=== PATIENT | female | born 1960 | race Caucasian/White ===

== ENCOUNTER 2017-06-10 18:01 | Inpatient (IN) ==
--- NOTE | 2017-06-10 19:02 | Emergency Department Note ---
Disposition Clinical Impression: Headache Qualifiers: Headache type: unspecified Headache chronicity pattern: unspecified pattern Intractability: not intractable Qualified Code(s): R51 - Headache Chest pain Qualifiers: Chest pain type: unspecified Qualified Code(s): R07.9 - Chest pain, unspecified Disposition: Admitted As Inpatient Condition: Fair Referrals: NO,PCP [Non-Partnered Physician] - Forms: ED Satisfaction Letter General Adult HPI - General Chief complaint: ED Headache Stated complaint: Multiple Complaints Time Seen by Provider: 06/10/17 18:08 Source: patient Mode of arrival: ambulatory Limitations: no limitations Nursing Notes Reviewed: Yes Vital Signs Reviewed: Yes - History of Present Illness HPI Narrative: sruthi is a 56-year-old female with a medical history of an incidental finding of a brain aneurysm on MRI, visits for headache in the past, presenting today with multiple complaints. When asking the patient what brings her into the emergency department today, she stated that initially her complaint is headache. She is unsure if it started yesterday or last Thursday, she proceeded to tell me her EMG results of both of her forearms, then she started to complain of a tiny aneurysm on her third finger of her left hand at the base. I asked the patient if she has one concern we can focus on initially, what is it? She stated she has a headache and the headache is posterior. She then began to talk about her aneurysm in her finger. I asked the patient to focus on one complaint at a time, she chose headache and then she told me that her headache is now resolved and she is now having more of a pressure behind her eyes. When asked about the pressure behind eyes the patient told me that pain resolved and now she is feeling nauseous. I proceeded by asking the patient what her expectations of the emergency department are today. States that she wants to know what is causing her "vasculitis and aneurysms." She says , "I just want to know what is wrong with me?" Pain Scale: 7 - Related Data Allergies Allergy/AdvReac Type Severity Reaction Status Date / Time sulfamethoxazole Allergy Anaphylaxis Verified 09/23/16 19:09 [From Bactrim] trimethoprim [From Bactrim] Allergy Anaphylaxis Verified 09/23/16 19:09 codeine AdvReac Itching Verified 09/23/16 19:09 All systems ED: reviewed and negative except as stated. Constitutional: Reports: as per HPI. Denies: fever, chills Eyes: Reports: as per HPI. Denies: vision change ENT ED: Reports: as per HPI. Denies: hearing loss Cardiovascular: Reports: as per HPI, syncope. Denies: chest pain, palpitations , dyspnea on exertion, orthopnea Respiratory: Reports: as per HPI. Denies: cough, dyspnea, wheezes Gastrointestinal: Reports: as per HPI. Denies: abdominal pain, nausea, vomiting Genitourinary: Reports: as per HPI. Denies: dysuria Musculoskeletal: Reports: as per HPI. Denies: back pain, neck pain Integumentary: Reports: as per HPI. Denies: rash Neurological: Reports: as per HPI, headache. Denies: weakness, numbness, paresthesias, abnormal gait Psychiatric: Reports: as per HPI Past Medical History - Past Medical History Medical history: Reports: GERD, hypertension, other Surgical history: Reports: cholecystectomy, hysterectomy Psychiatric history: Reports: anxiety [employer] history: Reports: polycystic ovary syndrome - Social History Smoking Status: Never smoker Smokeless Tobacco Status: No Alcohol use: Reports: none Drug use: Reports: none Physical Exam - General Limitations: no limitations General appearance: alert, in no apparent distress - Head Head exam: atraumatic, normocephalic, normal inspection - Eye Eye exam: Present: normal appearance, PERRL, EOMI - ENT ENT exam: normal exam, normal oropharynx, mucous membranes moist, TM's normal bilaterally - Neck Neck exam: Present: normal inspection, full ROM, trachea midline. Absent: tenderness - Chest Chest inspection: Present: normal inspection, symmetric chest wall rise, tenderness - Respiratory Respiratory exam: Present: normal lung sounds bilaterally. Absent: respiratory distress, wheezes, stridor - Cardiovascular Cardiovascular exam: Present: regular rate, normal rhythm, normal heart sounds - Abdominal Exam Abdominal exam: Present: soft, Non-Tender, normal bowel sounds. Absent: tenderness - Extremities Exam Extremities exam: Present: normal inspection - Back Exam Back exam: Present: normal inspection - Neurological Exam Neurological exam: Present: alert, oriented X3, CN II-XII intact, normal gait - Expanded Neurological Exam Patient oriented to: Present: person, place, time Speech: Present: fluid speech Cranial nerves: EOM function (II, III, IV, ): Normal, facial sensation (V): Normal, facial palsy (VII): Normal, gag reflex (IX): Normal, spinal accessory function (XI): Normal, tongue deviation (XII): Normal Cerebellar function: finger to nose: Normal, heel to randall: Normal Cerebellar function: normal gait Motor strength - LUE: 5/5 Motor strength - RUE: 5/5 Motor strength - LLE: 5/5 Motor strength - RLE: 5/5 Upper motor neuron exam: pronator drift: Absent bilaterally Sensory exam upper extremity: light touch: Normal Sensory exam lower extremity: light touch: Normal DTR: bicep (L): 2+, bicep (R): 2+, patellar (L): 2+, patellar (R): 2+ Coma Scale Eye Opening: Spontaneous Coma Scale Motor Response: Obeys Commands Coma Scale Verbal Response: Oriented Coma Scale Total: 15 - Psychiatric Psychiatric exam: Present: normal affect, normal mood - Skin Skin exam: Present: warm, dry Course Course Narrative: Initially presented to the ED with multiple complaints that are chronic. Initially, the patient began talking about her headache, throughout our discussion the location was inconsistent by the end of our conversation the patient stated the headache is not a problem right now. I had a very long discussion with the patient about her expectations of the emergency department what she would like for us to help her with today I discussed with the patient her visits to [facility] and the [facility] concerning her incidental finding of an aneurysm of her MRI she states she has gone to both places and now she is currently looking for interventional neurologists. I discussed with the patient our options as far as diagnostic modalities in the ER. I discussed with the patient that since her physical exam appears normal her neurological exam is completely intact and I do not find any abnormalities at this time, I do not believe a CT scan of her head is warranted and may just expose her to unnecessary radiation. I discussed this with the patient and she agreed with me. I offer the patient fluid and a migraine cocktail because she had been complaining of on and off headaches for the past few days, she politely declined. I recommended the patient follow up with her specialist that she has been currently seeing for these problems. Patient states that she understands and she does not believe that she will get when she is looking for in the emergency department and did prefer to just go home. The patient was also concerned of her blood pressure. She states that her blood pressure is high when she is up and walking around that concerns her because she knows that she has aneurysms. I offered to watch her blood pressure while she was here and I had her sit down on the bed to check her blood pressure because she was sitting in the visitors chair as she sat down her blood pressure she said that since going to be normal. I asked her if she wanted her blood pressure to be normal and she said yes but she knows that a tire when she was up and around and performing activities. With her that if her blood pressure is normal while she is resting comfortably in a chair is most likely not concerning. The patient understands. - Reevaluation(s) Reevaluation #1: The patient was seen by Dr. Iqbal and after discussion the patient stated she would like to leave AMA. Shortly afterward, she began to c/o new onset chest pain. I entered the room with Dr. Iqbal and her stated, "no more questions, if you have questions you can ask me, she is done!" We discussed with her that we need more information about the chest pain she is having now and will have to evaluate her if she is to be seen for her chest pain. We then proceeded to set the patient up for her EKG and her interrupted and stated, "she is having chest pain." I discussed with him the utility of the EKG in chest pain and that we are initiating a chest pain workup. THe patient also interrupted her history and stated that she has "a-fib," and the patient proceeded to tell me this it is not true. HPI Chest Pain The patient states she is having a substernal chest pain onset 2 minutes ago with radiation to back. Denies any N/V, diaphoresis, or SOB. Non-exertional. The patient states she has a "bigeminy and trigeminy" and takes metoprolol for it at home. Has not had aspirin today. Physical Exam: Pt appears to be in mild distress she is standing up leaning against the bed. I asked her to sit in bed to prevent falls and she agreed. The patient lungs remain CTAB, heart exam was normal rate and rhythm, no murmur, rubs or gallops. Abdominal exam was nontender, normal bowel sounds. The patient had 2+ radial and dorsalis pedal pulses bilaterally. I initiated a cardiac workup of the patient. at 19:[address] Iqbal and apologized for her behavior in the ED. Time: 19:42 Reevaluation #2: I spoke with DR. Martinez, he agrees to accept the patient for ACS r/o. Patient HR is 96, vitals are stable. Time: 20:50 Vital Signs Temperature 98.1 F 06/10/17 18:02 Pulse Rate 113 06/10/17 18:02 Respiratory Rate 16 06/10/17 18:02 Blood Pressure 167/96 06/10/17 18:02 O2 Sat by Pulse Oximetry 97 06/10/17 18:02 Temperature 98.1 F 06/10/17 18:02 Pulse Rate 113 06/10/17 18:02 Respiratory Rate 16 06/10/17 18:02 Blood Pressure 167/96 06/10/17 18:02 O2 Sat by Pulse Oximetry 98 06/10/17 19:45 Oxygen Delivery Oxygen Delivery Room Air Medical Decision Making - MDM Narrative Medical decision making narrative: See Course - Medical Records Medical records reviewed: Yes I reviewed the patient's medical records. - Lab Data Lab results reviewed: Yes I reviewed the patient's lab results. Result diagrams: 06/10/17 19:38 06/10/17 19:38 Lab Results 06/10/17 06/10/17 06/10/17 Range/Units 19:38 19:38 19:38 WBC 8.3 (4.3-11.1) K/mcL RBC 4.54 (3.82-4.97) M/mcL Hgb 13.4 (11.5-15.4) g/dL Hct 40.2 (35.3-44.9) % MCV 88.5 (83.0-100.0) fL MCH 29.5 (28.0-33.3) pg MCHC 33.3 (31.6-35.5) g/dL RDW 12.5 (11.5-14.5) % Plt Count 260 (140-400) K/mcL MPV 9.1 L (9.4-12.4) fL Immature Gran % 0.2 (0-4) % Seg Neutrophils % 44.0 % Lymphocytes % 42.6 % Monocytes % 9.2 % Eosinophils % 3.5 % Basophils % 0.5 % Neutrophils # 3.7 (1.6-8.9) K/mcL Lymphocytes # 3.6 (0.6-4.6) K/mcL Monocytes # 0.8 (0.0-1.3) K/mcL Eosinophils # 0.3 (0.0-0.6) K/mcL Basophils # 0.0 (0.0-0.2) K/mcL Immature Plt Fraction 1.6 (1.1-6.1) % PT 11.3 (9.4-12.1) Seconds INR 1.0 APTT 29.9 (26.0-36.0) Seconds Sodium 136 (136-145) mEq/L Potassium 4.1 (3.5-4.5) mEq/L Chloride 103 (98-109) mEq/L Carbon Dioxide 25 (19-29) mEq/L BUN 14 (7-20) mg/dL Creatinine 1.11 (0.57-1.11) mg/dL Est GFR ( Amer) > 60 (> 60) Est GFR (Non-Af Amer) 50 L (> 60) BUN/Creatinine Ratio 13 (6-26) Glucose 105 H (70-99) mg/dL Calculated Osmolality 283 (280-300) Calcium 9.3 (8.6-10.8) mg/dL Troponin I (0-0.03) ng/mL 06/10/17 Range/Units 19:38 WBC (4.3-11.1) K/mcL RBC (3.82-4.97) M/mcL Hgb (11.5-15.4) g/dL Hct (35.3-44.9) % MCV (83.0-100.0) fL MCH (28.0-33.3) pg MCHC (31.6-35.5) g/dL RDW (11.5-14.5) % Plt Count (140-400) K/mcL MPV (9.4-12.4) fL Immature Gran % (0-4) % Seg Neutrophils % % Lymphocytes % % Monocytes % % Eosinophils % % Basophils % % Neutrophils # (1.6-8.9) K/mcL Lymphocytes # (0.6-4.6) K/mcL Monocytes # (0.0-1.3) K/mcL Eosinophils # (0.0-0.6) K/mcL Basophils # (0.0-0.2) K/mcL Immature Plt Fraction (1.1-6.1) % PT (9.4-12.1) Seconds INR APTT (26.0-36.0) Seconds Sodium (136-145) mEq/L Potassium (3.5-4.5) mEq/L Chloride (98-109) mEq/L Carbon Dioxide (19-29) mEq/L BUN (7-20) mg/dL Creatinine (0.57-1.11) mg/dL Est GFR ( Amer) (> 60) Est GFR (Non-Af Amer) (> 60) BUN/Creatinine Ratio (6-26) Glucose (70-99) mg/dL Calculated Osmolality (280-300) Calcium (8.6-10.8) mg/dL Troponin I 0.01 (0-0.03) ng/mL - Radiology Data Radiology results reviewed: Yes I reviewed the patient's radiology results. S.B.A.R. - S.B.A.R. Situation: Demographics Background: Presenting Complaint, Relevant PMH, Meds, & Allergies Assessment: Vital Signs Recommendation: Recommendation based on pending studies, treatments, or consults Attestation Statement - Attestation Attestation: I personally interviewed and examined this patient and my medical decision- making was reviewed with the ED Resident Physician, Dr. Adams I agree with the documented findings, disposition and treatment plan as described except to the extent set forth below. Patient is a 56-year-old white female who presents to emergency department today initially through triage with complaints of a headache. Patient has been seen by outpatient neurology in the past as well as neurosurgery at both [facility] and [place] for issues with throbbing headaches. Patient states there is some question on prior imaging of the brain whether she could have had an aneurysm but on repeat imaging she was told that this ended up being an incidental finding and was referred to neurology on an outpatient basis last fall. There is some suggestion as to whether or not this could be migraine in nature and patient has not followed up with neurology since that time. When she initially arrived in the emergency department she was tearful she was very expressing great frustration in regards to ongoing headache symptoms which she states she experiences on a weekly basis. She says that these headaches began following an epidural procedure that she had approximately 1 year ago. Patient during my questioning decided that she did not want to go through any further physical exam or evaluation in the ED and had requested to sign out. Shortly after leaving the room the came to get me out of concern that she developed substernal chest pain and wanted to be evaluated. We returned to the emergency immediately patient was standing clutching her chest in the substernal area stating that she was having 10 out of 10 chest pain. Patient was also complaining of some associated nausea but was not not diaphoretic, not short of breath, no nausea or vomiting and denied any other associated symptoms. We proceeded with an EKG and started a chest pain evaluation. I agree with the patient's physical exam is documented. EKG was normal sinus rhythm with no acute ST-T wave changes. Chest x-ray showed no acute abnormality. Labs including troponin were all within normal limits. She received aspirin and nitroglycerin trial which resolved her symptoms. We will administer Nitropaste. Patient states her headache has not returned and she is not complaining of any headache or visual changes. At this time patient agrees to be admitted for further evaluation of chest pain and is hemodynamically stable at this time.
[2017-06-10] MEDS ORDERED: Nitroglycerin 0.4 MG TAB.SUBL SL ONE (19:27)
[2017-06-10] MEDS ORDERED: Aspirin 81 MG TAB.CHEW PO ONE (19:27)
[2017-06-10 19:46] LABS: Basophils % 0.5 %; Eosinophils # 0.3 K/mcL (0.0-0.6); Eosinophils % 3.5 %; Hematocrit 40.2 % (35.3-44.9); Hemoglobin 13.4 g/dL (11.5-15.4); Immature Granulocytes % 0.2 % (0-4); Immature Platelets 1.6 % (1.1-6.1); Lymphocytes # 3.6 K/mcL (0.6-4.6); Lymphocytes % 42.6 %; Mean Corpuscular HGB Conc 33.3 g/dL (31.6-35.5); Mean Corpuscular Hemoglobin 29.5 pg (28.0-33.3); Mean Corpuscular Volume 88.5 fL (83.0-100.0); Mean Platelet Volume 9.1 fL (9.4-12.4); Monocytes # 0.8 K/mcL (0.0-1.3); Monocytes % 9.2 %; Neutrophils # 3.7 K/mcL (1.6-8.9); Platelet Count 260 K/mcL (140-400); Red Blood Count 4.54 M/mcL (3.82-4.97); Red Cell Distribution Width 12.5 % (11.5-14.5)
[2017-06-10 19:58] LABS: BUN/Creatinine Ratio 13 (6-26); Blood Urea Nitrogen 14 mg/dL (7-20); Calcium 9.3 mg/dL (8.6-10.8); Carbon Dioxide 25 mEq/L (19-29); Chloride 103 mEq/L (98-109); Glucose 105 mg/dL (70-99); Osmolality,Calculated 283 (280-300); Potassium 4.1 mEq/L (3.5-4.5); Prothrombin Time 11.3 Seconds (9.4-12.1); Sodium 136 mEq/L (136-145); eGFR For African Americans > 60 (> 60); eGFR For Non-African Americans 50 (> 60)
[2017-06-10 20:00] LABS: Activated Partial Thrombo Time 29.9 Seconds (26.0-36.0)
[2017-06-10] MEDS ORDERED: Nitroglycerin 1 INCH/GM PACKET TP ONE (20:26)
[2017-06-10] MEDS ORDERED: *HR* LORazepam 2 MG/ML VIAL IVP ONE (20:26)
[2017-06-11] MEDS ORDERED: Naloxone 0.4 MG/ML INJ IVP PRN (00:52)
[2017-06-11] MEDS ORDERED: Nitroglycerin 0.4 MG TAB.SUBL SL PRN (00:57)
[2017-06-11] MEDS ORDERED: *HR* LORazepam 2 MG/ML VIAL IVP ONE (01:45)
--- NOTE | 2017-06-11 01:53 | Internal Med History&Physical ---
Date of Encounter: 06/11/17 Time of Encounter: 01:00 Assessment and Plan (1) Elevated troponin Current visit: Yes Status: Acute Likely due to NSTEMI - cardiology consultation. Pt had headache and intracranial process can cause mild elevation of troponin. patient declined CT scan of the head. (2) NSTEMI (non-ST elevated myocardial infarction) Current visit: Yes Status: Acute Start aspirin 325 mg daily. Cardiology consultation for further w/u and management. Pt is not started on haparin, as the pt did not have imaging of the head to exclude intracranial bleed. (3) Intracranial aneurysm Current visit: Yes Status: Acute MRA in August 2016 reported - tiny bulge arising from the P1 segment of the left posterior cerebral artery measuring 1.5 mm in diameter, possibly an aneurysm. Pt was apparently advised f/u Imaging. Pt reported headache, which is non-specific - no meningeal signs or fever. Pt declined CT head to exclude IC bleed. Neurology consultation. Neuro checks. (4) Chest pain Current visit: Yes Status: Acute Likely due NSTEMI. Continue aspirin and nitroglycerin Qualifiers: Chest pain type: unspecified Qualified Code(s): R07.9 - Chest pain, unspecified (5) Headache Current visit: Yes Status: Acute Pt reported headache, which is non-specific - no meningeal signs or fever. Pt declined CT head to exclude IC bleed. Neurology consultation. Neuro checks. Qualifiers: Headache type: unspecified Headache chronicity pattern: unspecified pattern Intractability: not intractable Qualified Code(s): R51 - Headache (6) Hypertension Current visit: Yes Status: Chronic Continue home medication Qualifiers: Hypertension type: essential hypertension Qualified Code(s): I10 - Essential (primary) hypertension Internal Medicine - H&P: HPI Chief complaint: Chest pain Admitted From: Emergency Dept Plans for Post Hospital Care: Home History of present illness: Ms. Uribe is a 57 year old female with history of hypertension, fibromyalgia, Incidnetal intracranial aneurysm (MRA in August 2016 reported - tiny bulge arising from the P1 segment of the left posterior cerebral artery measuring 1.5 mm in diameter, possibly an aneurysm.). 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 She is a difficult historian, and keeps focusing her history on the aneurysm of the finger. Needed some attempts to reorient her to current problems (also see the ER note). Per my comprehension of the history, she apparently presented to the emergency department for workup of vasculitis (wanted to know if she can have a medicine like steroid to resolve the aneurysm and to prevent aneurysms). While in the emergency department she reported occipital/cervical headache, moderate in intensity (not the worst headache), and pressure behind the eyes, and some tingling sensation and swelling at the site of the aneurysm of the finger. Heart headache apparently resolved in the emergency department. When the ER physician was planning to discharge her, she complained of chest pain - which was midsternal, felt like pressure, severe 10/10, going to her back. Associated nausea. Denies shortness of breath, sweating, palpitations. She denies abdominal pain, dysuria, hematuria, changes in bowel habits. She is admitted to the hospitalist service for further management. Past Med Surg Social Fam HX - Past Medical History Medical history: GERD, hypertension, other Psychiatric history: anxiety - Past Surgical History Surgical History: cholecystectomy, hysterectomy - Social History Smoking Status: Never smoker Smokeless Tobacco Status: No Alcohol use: none Drug use: none - Family History Mother Hx Family Cardiac Disorders: Yes (NH) Hx Family Endocrine Disorder: Yes (DM) - Additional Family History Additional family history: Denies family history of intracranial aneurysms (her cousine apparently had intracranial problems, but not certain if that was related to intracranial aneurysms) Internal Medicine - H&P: Meds Cyclobenzaprine HCl 5 mg PO HS 06/10/17 [History] Esomeprazole Magnesium [Nexium] 20 mg PO QAM 06/10/17 [History] Gabapentin [Neurontin] 200 mg PO HS 06/10/17 [History] Ibuprofen [Advil] 200 - 400 mg PO Q6H PRN 06/10/17 [History] Lisinopril [Zestril] 10 mg PO QAM 06/10/17 [History] Metoprolol [Lopressor] 100 mg PO BID 06/10/17 [History] Triamcinolone Acetonide 1 appl TP BID 06/10/17 [History] Allergies sulfamethoxazole [From Bactrim] Allergy (Verified 09/23/16 19:09) Anaphylaxis trimethoprim [From Bactrim] Allergy (Verified 09/23/16 19:09) Anaphylaxis codeine Adverse Reaction (Verified 09/23/16 19:09) Itching All Systems PM: A 10-system review of systems was performed and is negative for pertinent findings except as documented above in the HPI. - Constitutional Vitals: Temp Pulse Resp BP Pulse Ox 97.8 F 68 15 108/70 94 06/10/17 23:54 06/10/17 23:54 06/10/17 23:54 06/10/17 23:54 06/10/17 23:54 Exam: General: Not in acute pain at the time of my evaluation. She is anxious. HEENT: Oral mucosa is moist. No conjunctival palor or scleral icterus Neck: No obvious neck swellings Lungs: Clear to auscultation Cardiac: Regular rate and rhythm. No significant murmurs Abdomen: Soft, non tender. Bowel sounds present Genitourinary: No kirkland catheter Neurological: Alert and oriented. No gross localizing deficits. No neck stiffness. Pt is not able to do upward gaze (reports that she has problem for long time, since she had problem with epidural injection) Psych: Not aggressive or agitated Extremities: no significant leg edema Skin: No generalized rash Internal Med - H&P Results - Labs CBC & Chem 7: 06/10/17 19:38 06/10/17 19:38 - ABG Interpretation Interpretation: normal - EKG Data -: EKG Interpreted by Myself EKG shows normal: sinus rhythm Rate: normal - Impressions ITS Impressions Chest X-Ray 06/10/17 19:27 IMPRESSION: No acute cardiopulmonary abnormality. D/ / Ashu Dalton MD / Ashu Dalton MD Interpreting Provider: Ashu Dalton MD - VTE Reasons for not Prescribing Prophylaxis: Treatment not Indicated - Low risk for VTE
[2017-06-11 06:41] LABS: Chol/HDL Ratio 5.5 (0-4.9); Magnesium 1.7 mg/dL (1.6-2.6)
[2017-06-11] MEDS: Aspirin 325 MG TABLET PO SCH (09:27)
[2017-06-11] MEDS: Metoprolol 100 MG TABLET PO SCH ×2 (09:28→20:57)
[2017-06-11] MEDS: Triamcinolone Acet 0.1% CRM 15 GM TUBE TP SCH ×2 (09:28→20:58)
--- NOTE | 2017-06-11 11:04 | Rheumatology Consult Note ---
<Flavio Barrow - Last Filed: 06/11/17 17:06> Date of Encounter: 06/11/17 Time of Encounter: 11:04 Rheumatology Assess and Plan (1) NSTEMI (non-ST elevated myocardial infarction) Current Visit: Yes Status: Acute EKG showed no acute ST changes. CXR within normal limits. Troponin peaked at .63, trending down. Plan: awaiting full cardiology workup. Will continue to follow. ok to proceed with [facility] from rheumatology standpoint. unclear if any relationship to incidental brain aneurysm finding. (2) Headache Current Visit: Yes Status: Chronic on 05/28/16, patient received right L5-S1 transformainal epidural injection with local anesthetic and steroid under fluoroscopy by pain management for lumbar radiculitis. Patient states that ever since that procedure, she has been suffering from episodic headaches and has had multiple ER visits in the past for headaches. unsure if this is related. She states that on average, she gets headaches about a few times a month. She was evaluated by neurology at [facility] in 08/2016, and they did not recommend any further imaging. She was also evaluated by neurosurgery, who did not recommend aneurysm repair. they stated that her aneurysm does not account for her symptoms of left face transient migrating paresthesias. ESR normal in March, currently mildly elevated for age. CRP mildly elevated. outpatient labs for antibodies against MPO, AZ-3, C-anca, P-anca, HCV negative. patient denies jaw claudication. Plan: given chronicity of headache, giant cell arteritis unlikely. will repeat markers as outpatient. reviewed MRA with radiology, confirmed no vessel wall thickening or signs of vasculitis. MRI brain without multifocal abnormalities. await results of UA, Hep B panel, RF, CCP, CK. Qualifiers: Headache type: unspecified Headache chronicity pattern: unspecified pattern Intractability: not intractable Qualified Code(s): R51 - Headache (3) Nodule of finger of left hand Current Visit: Yes Status: Acute nodular finding in third digit on left hand. there are conflicting notes on [facility] as to whether this is an aneurysm or not. She was seen by [facility], and note stated that this is not an aneurysm. Plan: recommend vascular evaluation. Rheumatology HPI Consult date: 06/11/17 Requesting physician: Nahum Dean Consult reason: suspect vasculitis Chief complaint: headache History of present illness: Ms. Uribe is a 57 year old female with PMHx significant for HTN, GERD, fibromyalgia, psoriasis, arthritis, lumbar radiculopathy, incidental finding of intracranial aneurysm (MRA from 08/2016 showed tiny bulge arising from P1 segment of posterior cerebral artery measuring 1.5 mm in diameter, possible aneurysm). Patient arrived to ED on 06/10/17 with multiple complaints which include: posterior headache (unknown duration, multiple ED visits in past for headache), "aneurysm" on left third digit, pressure behind her eyes, nausea. She was going to leave [facility], but developed chest pain and was admitted for further evaluation. prior workup: ESR, REYES IgG, ANCA, Hep C antibody which are negative She saw Dr. Lamb at [facility] on 04/24/17 for carpal tunnel, and she was reassured that the soft tissue nodule on distal radial metaphyseal region of left wrist is not an aneurysm, as it is too superficial and nonpulsatile. she was diagnosed with carpal tunnel of the left wrist and was given a brace to wear at home. EMG studies were ordered. She saw Dr. Culp in office on 05/14/17. CTA of chest, abdomen, and pelvis with contrast was ordered to look for additional aneurysm, but as not approved by insurance. Today, patient is frustrated because she feels as though her workup for her symptoms has been unremarkable, and that nobody can find the source of her health problems. She stated she initially came to the ED for elevated blood pressure in 160s (which is high for her) and a throbbing sensation in er left hand, bilateral hand swelling with nausea, headache, and "excess stress." SHe complains of headache of 7/10 upon arrival to ED. She also complains of pain behind her eyes, increased fatigue, nausea. she denies vomiting, diarrhea. she does admit to having occasioanl chills. she denies jaw claudication. she reports pain "all over." She has taken steroids in the past for her chronic pain , but steroids did not relieve her pain. she denies history of chron's or ulcerative colitis. she denies having dry eyhes, but does have chronic dry mouth that is not new. patient was very anxious upon further questioning and when asked simple questions, she started to cry and stated that "i get stressed out when everyone asks me too many questions." At that time, she was not willing to answer anymore questions. Past Med Surg Social Fam HX - Past Medical History Medical history: GERD, hypertension, other Psychiatric history: anxiety - Past Surgical History Surgical History: cholecystectomy, hysterectomy - Social History Smoking Status: Never smoker Smokeless Tobacco Status: No Alcohol use: none Drug use: none - Family History Mother Hx Family Cardiac Disorders: Yes ([place]) Hx Family Endocrine Disorder: Yes (DM) Medications and Allergies Cyclobenzaprine HCl 5 mg PO HS 06/10/17 [History] Esomeprazole Magnesium [Nexium] 20 mg PO QAM 06/10/17 [History] Gabapentin [Neurontin] 200 mg PO HS 06/10/17 [History] Ibuprofen [Advil] 200 - 400 mg PO Q6H PRN 06/10/17 [History] Lisinopril [Zestril] 10 mg PO QAM 06/10/17 [History] Metoprolol [Lopressor] 100 mg PO BID 06/10/17 [History] Triamcinolone Acetonide 1 appl TP BID 06/10/17 [History] Allergies sulfamethoxazole [From Bactrim] Allergy (Verified 09/23/16 19:09) Anaphylaxis trimethoprim [From Bactrim] Allergy (Verified 09/23/16 19:09) Anaphylaxis codeine Adverse Reaction (Verified 09/23/16 19:09) Itching All Systems Review: A 10-system review of systems was performed and is negative for pertinent findings except as documented above in the HPI. Rheumatology Exam Vital Signs, Last 4 Hours Temp Pulse Resp BP Pulse Ox 06/11/17 07:40 98.1 F 76 15 121/81 95 Exam: eyes: pupils equally reactive to light General: alert and oriented x3, no acute distress, patient appears depressed. Lungs: clear to auscultation bilaterally. Cardiovascular: RRR, no rups gallops, or murmurs. Extremtiies: no cyanosis, edema, clubbing. Radial pulses +2/4, symmetric bilaterally. mildly decreased range of motion of upper extremities bilaterally due to shoulder discomfort. Neuro: cranial nerves 2-12 intact, muscle strength 5/5, patellar and achilles reflexes within normal limits. Skin: no abnormalities noted. Rheumatology Results 06/10/17 19:38 06/10/17 19:38 All other labs normal. Consult Discharge Plan - Plan Referrals: Demian Cuellar MD [Primary Care Provider] - <Mason PowellRonni W - Last Filed: 06/11/17 18:06> Date of Encounter: 06/11/17 Rheumatology HPI History of present illness: Ms. Uribe is a 57 year old female All Systems Review: A 10-system review of systems was performed and is negative for pertinent findings except as documented above in the HPI. Rheumatology Exam Vital Signs, Last 4 Hours Temp Pulse Resp BP Pulse Ox 06/11/17 15:57 97.7 F 79 15 112/77 93 Rheumatology Results 06/10/17 19:38 06/10/17 19:38 All other labs normal. - Attending Attestation I examined this patient and my medical decision making was reviewed with the resident physician. I agree with the documented findings, disposition and treatment as described with these exceptions. In summary,this is a 57 year old female with degenerative disc disease, possible aneurym, headaches who presents to the hospital and found to have an NSTEMI. She has a history of 13 month history of headaches that began after a epidural and has since had some migrating paresthesias. She has seen neurovascular medicine and neurosurgery at [facility] and I was able to review those notes. Neurology recommended outpatient follow-up but she never did return. MRI showing possible aneurysm. I did call and speak to the radiologist, no signs of vessel thickening concerning for vasculitis. MRI of brain does not have any multifocal changes. There has been a concern in regards to a digital aneurysm though it is unclear how this was imaged; she reports a commercial hvac technician had looked at it with an ultrasound but in the chart orthopedics had commended that this is not an aneurysm. Now she does present with a cardiac event, elevations in troponins and being worked up per cardiology. I reviewed outpatient labs from 04/15 - negative ANCA, REYES normal, ESR 36. CBC WNL, GFR ok. CXR without mediastinal widening. Exam - Conjunctiva clear, no temporal artery tenderness, no oral ulcerations. Cardiac - No murmurs, no subclavian bruits. Left blood pressure 110/78, right blood pressure 114/74, radial pulses are equal MSK - No synovitis. Right third digit small nodule, hard and nonpulsatile Skin - no cutaneous ulcerations, rashes or lesions. At this time I have been questioned if there is a systemic vasculitis. 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 - She has headaches now for over a year; ESR normal in March, now mildly abnormal in setting of NSTEMI; I am not certain if this is a giant cell arteritis though suspicion low and given duration of symptoms may reevaluate this as an outpatient with repeat of some markers. I do note equal radial pulses, equal blood pressures, no bruits and no mediastinal widening on CT. Await TTE of heart. - Coronary events can occur in the setting of vasculitis though without an established vasculitis, I would recommend treating accordingly and I am going to hold off on systemic steroids now as I am still not certain if some of these findings are more coincidental. I did try and reach out to Dr. Chapman but he was unavailable. - Regarding finger abnormality; I cannot find any conclusive testing that this was a confirmed aneurysm; I would believe this would be an unusual place for an aneurysm but since the question has been raised, she would benefit from vascular medicine to take a look. - At this time, hold off on therapy and she will have her cardiac issue addressed. - I will reevaluate her in the outpatient setting. - I will be gone till Thursday.
--- NOTE | 2017-06-11 11:15 | Cardiology Consult Note ---
Date of Encounter: 06/11/17 Time of Encounter: 11:07 Assessment and Plan (1) NSTEMI (non-ST elevated myocardial infarction) Current Visit: Yes Status: Acute Per cardiology: Troponin peaked at 0.63. Trending down to 0.43. EKG with no acute ST changes. Currently pain free. Cardiac risk factors include HTN and family history. TTE 03/2017- EF 65%. No significant valvular disease. LHC R/B/A discussed and she agrees to proceed. (2) Intracranial aneurysm Current Visit: Yes Status: Acute Per Cardiology: Patient recently found to have small cerebral aneurysm and left third finger aneurysm. 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 Out patient work-up was started by [place] [facility]ology, CT of chest to r/o thoracic/abdominal aneurysm was ordered but not approved by insurance. There is concern for vasculitis. Patient originally presented with concerns for this with c/o worsening symptoms. She voiced frustration of out-pt work-up not being completed. Discussed with Dr. Chapman, consult rheumatology for concern of vasculitis and recommendation for work-up and treatment. Discussion w patient/family: The assessment and plan as outlined above was discussed with the patient and/or family members who expressed understanding and agreement. All questions were answered. Thank you for involving us in the care of your patient. Please call with any questions. History of Present Illness Consult date: 06/11/17 Requesting physician: Krystal Martinez Consult reason: Chest pain, elevated troponin Chief complaint: Chest pain, headache, arm pain History of present illness: Ms. Uribe is a 57 year old female with a history of hypertension, and cerebral aneurysm who initially presented to the ED with headache and bilateral hand pain. She was concerned about a recent diagnosis of cerebral aneurysm and third left finger aneurysm. During her stay she was treated with pain and anxiety medication. She reports becoming agitated telling everyone her story when she developed midsternal chest discomfort. She denies SOB or palpitations. She reports she started to sweat. Her EKG showed no acute changes. She was given NTG SL with relief of her pain. Reports recurrent pain overnight. She was admitted for chest pain work-up. Troponin elevated as high as 0.63 overnight. Cardiology consulted for NSTEMI. She denies previous history of CAD. She underwent LHC 10 years ago that was normal. Past Med Surg Social Fam HX - Past Medical History Attestation: Yes The following information was validated with the patient. Medical history: GERD, hypertension, other Psychiatric history: anxiety - Past Surgical History Surgical History: cholecystectomy, hysterectomy - Social History Smoking Status: Never smoker Smokeless Tobacco Status: No Alcohol use: none Drug use: none - Family History Mother Hx Family Cardiac Disorders: Yes ([place]) Hx Family Endocrine Disorder: Yes (DM) Medications and Allergies Cyclobenzaprine HCl 5 mg PO HS 06/10/17 [History] Esomeprazole Magnesium [Nexium] 20 mg PO QAM 06/10/17 [History] Gabapentin [Neurontin] 200 mg PO HS 06/10/17 [History] Ibuprofen [Advil] 200 - 400 mg PO Q6H PRN 06/10/17 [History] Lisinopril [Zestril] 10 mg PO QAM 06/10/17 [History] Metoprolol [Lopressor] 100 mg PO BID 06/10/17 [History] Triamcinolone Acetonide 1 appl TP BID 06/10/17 [History] Allergies sulfamethoxazole [From Bactrim] Allergy (Verified 09/23/16 19:09) Anaphylaxis trimethoprim [From Bactrim] Allergy (Verified 09/23/16 19:09) Anaphylaxis codeine Adverse Reaction (Verified 09/23/16 19:09) Itching All Systems Review: A 10-system review of systems was performed and is negative for pertinent findings except as documented above in the HPI. Physical Examination Vital Signs, Last 4 Hours Temp Pulse Resp BP Pulse Ox 06/11/17 07:40 98.1 F 76 15 121/81 95 General: Conversant, No Apparent Distress, Other (anxious appearing) HEENT: Atraumatic, Normocephaly, Mucus Membranes Moist Neck: No JVD, Normal carotid pulses Cardiac: Reg Rate and Rhythm, Normal S1 and S2, No Murmur Lungs: Normal Breath Sounds, No Wheeze, Rales, Rhonchi Neuro: Alert and responsive, No focal deficits noted Abdomen: Soft, Non-Tender Skin: No rashes noted on visualized skin Musculoskeletal: No Chest Wall Tenderness Extremities: No Clubbing, No Cyanosis, No Edema, Normal Pulses Results 06/10/17 19:38 06/10/17 19:38 Lab Results 06/11/17 06/11/17 06/11/17 01:36 01:36 07:18 Magnesium 1.7 Troponin I 0.63 H* 0.43 H* Chest X-Ray 06/10/17 19:27 IMPRESSION: No acute cardiopulmonary abnormality. D/ / Ashu Dalton MD / Ashu Dalton MD Interpreting Provider: Ashu Dalton MD - Imaging and Cardiology Chest Xray: report reviewed Echo: report reviewed - EKG Interpretation EKG results cardiology: personally reviewed (NSR with no acute ST changes.) Consult Discharge Plan - Plan Referrals: Demian Cuellar MD [Primary Care Provider] -
--- NOTE | 2017-06-11 14:08 | Electrocardiograph Report ---
[address] [address] Test Date: 2017-06-10 Pat Name: Diane Uribe Department: 104 Room: 3B Gender: F Handkerchief Folder: NANCY : 1960 Requested By: Cal Adams Order Number: [id number] Reading MD: Alvin Andrew Measurements Intervals [place] Rate: 66 P: 57 NE: 176 QRS: -7 QRSD: 101 T: 38 QT: 378 QTc: 391 Interpretive Statements SINUS RHYTHM Electronically Signed On 06-11-2017 14:07:21 EDT by Alvin Andrew
[2017-06-11] MEDS: *HR* LORazepam 2 MG/ML VIAL IVP PRN (14:20)
--- NOTE | 2017-06-11 17:13 | Neurology - Consult Note ---
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 This would not be considered a risk for proposed cardiac catheterization procedure. Patient is neurologically cleared for such procedure. Please call if any questions History of Present Illness Chief complaint: cerebral aneurysm and headache HPI: Ms. Uribe is a 57 year old female with PMH significant for obesity, HTN, lumbar stenosis who presented with multiple complaints, including headache, paresthesia , concerns for left hand aneurysm and cerebral aneurysm. Patient has multiple complaints initially but it turns out that her major concern was something in her hand (carpal tunnel syndrome?) and causes concerns due to the fact that the program medical director plan to do cardiac cath and she was concerned that it would interfere with the ?'aneurysm' in her hand. 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 MRI of brain showed no acute intracranial abnormality. No headaches right now. Past Med Surg Social Fam HX - Past Medical History Medical history: GERD, hypertension, other Psychiatric history: anxiety - Past Surgical History Surgical History: cholecystectomy, hysterectomy - Social History Smoking Status: Never smoker Smokeless Tobacco Status: No Alcohol use: none Drug use: none - Family History Mother Hx Family Cardiac Disorders: Yes ([place]) Hx Family Endocrine Disorder: Yes (DM) Medications and Allergies Cyclobenzaprine HCl 5 mg PO HS 06/10/17 [History] Esomeprazole Magnesium [Nexium] 20 mg PO QAM 06/10/17 [History] Gabapentin [Neurontin] 200 mg PO HS 06/10/17 [History] Ibuprofen [Advil] 200 - 400 mg PO Q6H PRN 06/10/17 [History] Lisinopril [Zestril] 10 mg PO QAM 06/10/17 [History] Metoprolol [Lopressor] 100 mg PO BID 06/10/17 [History] Triamcinolone Acetonide 1 appl TP BID 06/10/17 [History] Allergies sulfamethoxazole [From Bactrim] Allergy (Verified 09/23/16 19:09) Anaphylaxis trimethoprim [From Bactrim] Allergy (Verified 09/23/16 19:09) Anaphylaxis codeine Adverse Reaction (Verified 09/23/16 19:09) Itching All Systems: A 10-system review of systems was performed and is negative for pertinent findings except as documented above in the HPI. Physical Examination - Vital Signs Vital Signs: Initial Vital Signs Temp Pulse Resp BP Pulse Ox 98.1 F 113 16 167/96 97 06/10/17 18:02 06/10/17 18:02 06/10/17 18:02 06/10/17 18:02 06/10/17 18:02 - Constitutional General appearance: comfortable - Neurologic Sensorimotor examination: intact Detailed motor examination: grossly full strength in all extremities Motor examination - right side: 5/5: deltoids, biceps, triceps, wrist flexion, wrist extension, sap portal consultant, hip flexors, tibialis Anterior, quadriceps, toe extension (EHL), plantarflexion Motor examination - left side: 5/5: deltoids, biceps, triceps, wrist flexion, wrist extension, hip flexors, sap portal consultant, quadriceps, tibialis Anterior, toe extension (EHL), plantarflexion Detailed sensory examination: other Reflex and gait examination: intact Reflexes: Biceps: 1+, Triceps: 1+, Brachioradialis: 1+, Achilles: 1+ Mental Status Examination: awake, alert, oriented to person, oriented to place, oriented to time, follows commands appropriately, answers questions appropriately, no agnosia, no aphasia, no aproxia Cranial nerve examination: PERRL, EOMI, visual bustillo intact, corneal reflexes brisk symmetrically, sensory to face intact, mastication intact, no facial asymmetry is present, no dysarthria, hearing is intact symmetrically, soft palate elevates bilaterally upon phonation, gag reflex intact, flexes SCM and trapezius muscles symmetrically with full power, tongue protrudes midline, no atrophy or facial fasiculations present Cerebellar examination: no dysmetria, performs finger to nose and heel to randall symmetrically without ataxia, no gait ataxia, no truncal ataxia, no difficulty with rapid alternating movements Results - Laboratory Findings CBC and BMP: 06/10/17 19:38 06/10/17 19:38 Abnormal lab findings: Abnormal lab results MPV 9.1 fL (9.4-12.4) L 06/10/17 19:38 ESR 37 mm/hr (0-15) H 06/11/17 11:07 Est GFR (Non-Af Amer) 50 (> 60) L 06/10/17 19:38 Glucose 105 mg/dL (70-99) H 06/10/17 19:38 Troponin I 0.43 ng/mL (0-0.03) H* 06/11/17 07:18 C-Reactive Protein 9 mg/L (Less than 5) H 06/11/17 11:07 Triglycerides 230 mg/dL (< 150) H 06/11/17 01:36 VLDL Cholesterol, Calc 46 mg/dL (< 31) H 06/11/17 01:36 HDL Cholesterol 30 mg/dL (40-59) L 06/11/17 01:36 Cholesterol/HDL Ratio 5.5 (0-4.9) H 06/11/17 01:36 Consult Discharge Plan - Plan Referrals: Demian Cuellar MD [Primary Care Provider] -
--- NOTE | 2017-06-11 19:14 | Event Note ---
Date of Encounter: 06/11/17 Time of Encounter: 14:30 Patient seen and examined. On examination, patient and her family were requesting IV lorazepam stating that she was overwhelmed. Patient would continually cried during my interaction with her. Patient stated that she was overwhelmed and that she was concerned about her finger, her head, and her chest. With a thorough review of her charts available, her medical history is a bit unclear. Conflicting results whether or not she has an aneurysm in her finger whether or not it is simply carpal tunnel noted in [facility]. In any event, she can follow up outpatient regarding this concern. I am still awaiting paperwork from [facility]. She was referred to both [facility] and [facility] neurology departments but she decided she did not need to go to [place] so I am awaiting paperwork from [facility]. Neurology is on board, patient remains very concerned about her intracranial aneurysm which appears to be 1.5 mm. Her daughter states that she had a routine surveillance of her last August and they told her to follow up again in one year which be this coming August. Appreciate neurology recommendations however any correlation to her NSTEMI is seemingly unlikely. It was difficult for the patient to focus on one problem at a time. She continually bounced back and forth between her headaches, her finger, her heart, and she was unable to answer simple questions. We will continue with IV lorazepam as needed. Likely proceed with left heart catheter tomorrow once cleared by neurology. Rheumatology has also been brought on board and has cleared her for outpatient follow-up from a rheumatological standpoint-vasculitis unlikely. Awaiting neurology recommendations. Elevated troponin noted and cardiology plans for left heart catheter once she is cleared per neurology given her alleged history of intracranial aneurysm with possible vasculitis. Patient currently denies chest pain and states that she is more anxious than anything. She declines any narcotic pain medication and states that if she has chest pain she would prefer to have nitroglycerin and anxiety medication instead of pain medication. ITS Impressions Chest X-Ray 06/10/17 19:27 IMPRESSION: No acute cardiopulmonary abnormality. D/ / Ashu Dalton MD / Ashu Dalton MD Interpreting Provider: Ashu Dalton MD
[2017-06-11] MEDS ORDERED: Gabapentin 100 MG CAPSULE PO SCH (21:00)
[2017-06-12 05:56] LABS: INR 1.1; Prothrombin Time 11.8 Seconds (9.4-12.1)
[2017-06-12 06:01] LABS: Basophils % 0.5 %; Eosinophils # 0.2 K/mcL (0.0-0.6); Eosinophils % 3.2 %; Hematocrit 39.5 % (35.3-44.9); Hemoglobin 13.2 g/dL (11.5-15.4); Immature Granulocytes % 0.3 % (0-4); Lymphocytes # 2.2 K/mcL (0.6-4.6); Lymphocytes % 34.9 %; Mean Corpuscular HGB Conc 33.4 g/dL (31.6-35.5); Mean Corpuscular Hemoglobin 30.1 pg (28.0-33.3); Mean Platelet Volume 9.4 fL (9.4-12.4); Monocytes # 0.6 K/mcL (0.0-1.3); Monocytes % 10.1 %; Neutrophils # 3.2 K/mcL (1.6-8.9); Platelet Count 201 K/mcL (140-400); Red Blood Count 4.39 M/mcL (3.82-4.97)
[2017-06-12 06:03] LABS: BUN/Creatinine Ratio 17 (6-26); Blood Urea Nitrogen 14 mg/dL (7-20); Calcium 9.2 mg/dL (8.6-10.8); Carbon Dioxide 25 mEq/L (19-29); Chloride 107 mEq/L (98-109); Glucose 116 mg/dL (70-99); Osmolality,Calculated 287 (280-300); Potassium 4.2 mEq/L (3.5-4.5); Sodium 138 mEq/L (136-145); eGFR For African Americans > 60 (> 60); eGFR For Non-African Americans > 60 (> 60)
[2017-06-12 07:06] LABS: Rheumatoid Factor < 15 IU/mL (0-29)
[2017-06-12 07:25] LABS: Hepatitis B Surface Antigen Nonreactive (Nonreactive)
[2017-06-12] MEDS: Triamcinolone Acet 0.1% CRM 15 GM TUBE TP SCH (08:22)
[2017-06-12] MEDS: Aspirin 325 MG TABLET PO SCH (08:22)
[2017-06-12] MEDS: Metoprolol 100 MG TABLET PO SCH (08:22)
--- NOTE | 2017-06-12 09:25 | Internal Med Progress Note ---
Date of Encounter: 06/12/17 Time of Encounter: 08:15 - Assessment and plan (1) NSTEMI (non-ST elevated myocardial infarction) Current Visit: Yes Status: Acute (2) Chest pain Current Visit: Yes Status: Acute Assessment and plan: Patient currently denies chest pain or shortness of breath. Plan is for left heart catheter today. Qualifiers: Chest pain type: unspecified Qualified Code(s): R07.9 - Chest pain, unspecified (3) Elevated troponin Current Visit: Yes Status: Acute Assessment and plan: trended back down. [facility] today (4) Headache Current Visit: Yes Status: Chronic Assessment and plan: Patient currently denies pain. Qualifiers: Headache type: unspecified Headache chronicity pattern: unspecified pattern Intractability: not intractable Qualified Code(s): R51 - Headache (5) Emotional instability (excessive) Current Visit: Yes Status: Chronic Assessment and plan: chronic for this patient. Patient cycles between severe anxiety, severe anger and severe emotional distress rapidly and frequently. Recommend close outpatient followup with psychiatry for consideration of mood stabilizers. Patient stating she was on amitriptyline in the past but states she had leg cramps every night. Her family seems to feed into and exacerbate her mood swings as well. Continue IV ativan prn while admitted. (6) Intracranial aneurysm Current Visit: Yes Status: Chronic Assessment and plan: Patient stating that she has an intracranial aneurysm and states that she is followed up at [facility] for this. In review of her chart, she had a brain MRI on 10/02/16 that was read as normal without any mention of an aneurysm. She had a brain MRA on 09/23/16 which revealed a possible aneurysm off the P1 segment of the left [employer] but measured 1.5 mm. She was then seen at [facility] on 09/25/16 by neurology and was instructed to follow-up with her primary care provider and she was started on gabapentin at that time without intervention indicated. During this visit at [facility], she was also seen by neurosurgery who stated that her symptoms at that time which consisted of transient left sided face paresthesias were not attributed to her small aneurysm and she was again recommended to follow up outpatient. According to the neurologist that saw her at [facility], she had complained of transient migratory paresthesias to several parts of her body that would not localized to a dermatomal distribution or a spinal cord level and at that time, the neurologist surmised this was likely secondary to her anxiety and she was recommended to follow up outpatient with her primary care provider. Neurology has been brought on board who has reviewed her charting as well and has signed off at this time. (7) Hypertension Current Visit: Yes Status: Chronic Assessment and plan: controlled; will continue to trend Qualifiers: Hypertension type: essential hypertension Qualified Code(s): I10 - Essential (primary) hypertension (8) Nodule of finger of left hand Current Visit: Yes Status: Chronic Assessment and plan: In review of her chart in [facility], her medical history regarding whether or not she has an aneurysm in her finger is a bit unclear. Conflicting results whether or not she has an aneurysm in her finger whether or not it is simply carpal tunnel noted in [facility]. In any event, she can follow up outpatient regarding this concern. Her hands and fingers are both neurovascularly intact, and can be addressed outpatient. Rheumatology has also been brought on board and has cleared her for outpatient follow-up from a rheumatological standpoint- vasculitis unlikely. - Subjective Interval history: Patient seen and examined. On examination, patient resting supine in bed conversing with her . She states that she feels much better today and states that her anxiety is currently more controlled. She denies pain at this time. - Constitutional Vitals: Temp Pulse Resp BP Pulse Ox 97.9 F 75 16 107/72 93 06/12/17 07:21 06/12/17 07:21 06/12/17 07:21 06/12/17 08:30 06/12/17 07:21 General appearance: Present: A&O X 3, pleasant, no acute distress, obese, answers questions appropriately - Head Head exam: Present: atraumatic, normocephalic - Eye Eye exam: Present: PERRL, conjuntiva pink, sclera anicteric Pupils: Present: PERRL - Neck Neck exam general surgery: Present: supple, trachea midline. Absent: lymphadenopathy - Respiratory Respiratory exam: Present: CTAB. Absent: accessory muscle use, rales, respiratory distress, rhonchi, wheezes - Cardiovascular Cardiovascular exam: Present: RRR, +S1, +S2. Absent: diastolic murmur, gallop, rubs, systolic murmur - GI/Abdominal GI/Abdominal exam: Present: normal bowel sounds, soft, no peritoneal signs. Absent: distended, tenderness - Extremities Exam Extremities exam: Present: warm, radial pulses palpable and symetrical. Absent : calf tenderness, cyanotic, pedal edema - Neurological Exam Neurological exam: Present: alert, CN II-XII intact, oriented X3, no focal deficits, strengths equal and symetr throughout. Absent: pronater drift, facial droop, speech deficit - Psychiatric Psychiatric exam: Present: anxious. Absent: suicidal ideation - Expanded Psychiatric Exam Focused psych exam: Present: perseverating, restlessness - Skin Skin exam: Present: dry, intact, normal color, warm Internal Medicine: Result - Labs CBC & Chem 7: 06/12/17 05:29 06/12/17 05:29 - ABG Interpretation ABG results: PT/INR, D-dimer PT 11.8 Seconds (9.4-12.1) 06/12/17 05:29 - VTE Reasons for not Prescribing Prophylaxis: Treatment not Indicated - Low risk for VTE Consult Discharge Plan - Plan Referrals: Demian Cuellar MD [Primary Care Provider] - 06/15/17 2:45 pm
[2017-06-12] MEDS ORDERED: Verapamil 5 MG/2 ML VIAL ONE (11:40)
[2017-06-12] MEDS ORDERED: 0.9 % Sodium Chloride 1,000 ML ONE (11:40)
[2017-06-12] MEDS ORDERED: *HR* Heparin 10,000 UNIT/10 ML VIAL ONE (11:41)
[2017-06-12] MEDS ORDERED: Nitroglycerin 1,000 MCG/10 ML VIAL IV ONE (11:41)
[2017-06-12] MEDS ORDERED: Heparin 1,000 UNITS/500 mL NS 500 ML ONE (11:41)
--- NOTE | 2017-06-12 12:03 | Pre-Sedation Evaluation ---
Pre-sedation evaluation - Pre-sedation checklist Date of procedure: 06/12/17 Procedure: [facility] Recent Vitals: Last Vital Signs Temp 98.0 F 06/12/17 11:09 Pulse 68 06/12/17 11:09 Resp 16 06/12/17 11:09 BP 111/78 06/12/17 11:54 Pulse Ox 94 06/12/17 11:09 H&P (including ROS) documented in medical record: Yes Previous reaction to sedatives/anesthetics: No Dietary Status: NPO after Midnight Airway Assessment: Patient can open mouth completely, TMJ function normal ASA Classification *see protocol: CLASS II-Mild systemic disease Plan of Care: Pt appropriate candidate for procedure/moderate/conscious sedation , Risks/benefits of procedure/sedation discussed w/ patient/family
[2017-06-12] MEDS ORDERED: *HR* Midazolam HCl 2 MG/2 ML VIAL ONE (12:07)
[2017-06-12] MEDS ORDERED: *HR* FentaNYL (PF) 100 MCG/2 ML VIAL ONE (12:08)
--- NOTE | 2017-06-12 12:39 | Event Note ---
Date of Encounter: 06/12/17 Time of Encounter: 12:30 - Cardiology Event Note Takotsubo cardiomyopathy EF 35%. Patient already on BB/ACEI. Switch to toprol XL for guideline directed BB for CHF. Mild CAD. Will sign off. FU with Dr. Franks.
--- NOTE | 2017-06-12 13:04 | Invasive Diagnostic Lab Proc ---
Name: Diane Uribe Date of Study: 06/12/2017 Date: 1960 Ht: 61.0in Medical Record#: [id number] Age: 57 Wt: 189.38lb Gender: Female BSA: 1.85 Order #: [id number] BMI: 35.8 Physicians Procedure Physician: Damian Chapman MD, [facility] Referring MD: Referring MD: Staff Name Position Time In Arianne Ayers RN Water Resources Technical Officer 12:04 PM Swetha Garza RT (R) Scrub 12:04 PM Benjy Garza RT (R) Monitor 12:04 PM Lucy Evans RN Water Resources Technical Officer 12:41 PM Indications Indication Non-Stemi Procedures Performed Procedure L HRT ARTERY/VENTRICLE ANGIO Pre-Procedure Checklist Pt not NPO for procedure and MD aware. Blood Pressure: 98/67 Rhythm: NSR Plan of Care Patient will tolerate the procedure without complications. Adequate level of comfort will be maintained. Hemodynamics will remain stable Patient will recover from procedure without complications. Respiratory function will be maintained. Cardiac rhythm will remain stable. Patient temperature will be maintained. Patient and/or family have verbalized understanding of the procedure. Patient Education Chief Complaint/Reason for Test: Cardiac Cath Developmental Category: Adult (18-64 years) Developmentally Appropriate for Age: Yes Learning Barriers: None Education Needs: Procedure Education Method: Verbal Information Taught: Cardiac Cath Educational Evaluation: Able to repeat information Intravenous Access Time IV Size Location DC'd Fluid/Drip Rate Units RN 12:08 PM 18g 1 1/4" Patent On Arrival Rt Antecubital 0.9NaCl 25 Arianne Ayers RN Allergies codeine Acetaminophen trimethoprim Hydrocodone sulfamethoxazole Vital Signs Time BP (mmHg) HR (bpm) O2 Sat. RR (bpm) LOC 98 / 67 75 93 % 16 12:00 PM / % 5 = Fully awake and oriented or at pre-proc level 12:00 PM / % 4 = Oriented but drowsy 12:15 PM / % 4 = Oriented but drowsy 12:30 PM / % 5 = Fully awake and oriented or at pre-proc level 12:32 PM 122 / 69 77 100 % 22 12:35 PM 122 / 67 76 100 % 23 12:38 PM 118 / 78 73 100 % 17 12:41 PM 90 / 51 67 100 % 18 12:44 PM 125 / 78 69 100 % 15 12:47 PM 128 / 67 70 98 % 14 12:50 PM 123 / 88 70 99 % 18 12:08 PM 137 / 76 77 99 % 27 12:11 PM 120 / 72 102 99 % 24 12:14 PM 119 / 65 78 100 % 17 12:17 PM 117 / 64 78 100 % 24 12:20 PM 108 / 58 72 99 % 19 12:23 PM 116 / 56 75 100 % 21 12:26 PM 107 / 62 72 100 % 21 12:29 PM 112 / 59 70 100 % 23 Procedural Medications Time Medication Dose Units Method Given By 12:09 PM Versed 2 mg Intravenous Arianne Ayers RN 12:09 PM Fentanyl 25 mcg Intravenous Arianne Ayers RN 12:09 PM Oxygen 2 L/min nasal cannula Arianne Ayers RN 12:12 PM Oxygen 4 L/min nasal cannula Arianne Ayers RN 12:21 PM Lidocaine 2% 19 ml Subcutaneous Damian Chapman MD, [facility] ASA Classification: CLASS II- Mild systemic disease (i.e. well-controlled diabetes, hypertension, asthma, cigarette smoking) Tamra Score Preprocedure Postprocedure Activity 2- Moves 4 extremities sustained head lift Activity 2- Moves 4 extremities sustained head lift Circulation 2- SBP +/= 20 points of pre-anesthetic level Circulation 2- SBP +/= 20 points of pre-anesthetic level Consciousness 2- Awake and alert oriented x 3 Consciousness 2- Awake and alert oriented x 3 O2 Saturation 2- Able to maintain O2 satruation of 92% on room air O2 Saturation 2- Able to maintain O2 satruation of 92% on room air Respiratory 2- Able to deep breathe and cough well Respiratory 2- Able to deep breathe and cough well Total Score 10 Total Score 10 Contrast Agent: Isovue Diagnostic Contrast: 56 ml Total Contrast: 56 ml Fluoro Dose: 113 mGy Procedure Log Time Note Enter By 12:00 PM Pt arrived to cytogenetics laboratory manager 2 at 12:00 [email or web address] 12:00 PM Patient charges- Angio tray pack, Navilyst 3mm J, Pulse Oximetry and ACIST tubing and transducer [email or web address] 12:00 PM Time: 12:00 Patient comfortable and pain free: Yes [email or web address] 12:00 PM Time: 12:00LOC: 5 = Fully awake and oriented or at pre-proc level [email or web address] 12:03 PM Physician arrived 12:03 [email or web address] 12:03 PM Mariano completed [email or web address] 12:03 PM Sign in performed according to hospital policy. [email or web address] 12:03 PM ASA Class CLASS II- Mild systemic disease (i.e. well-controlled diabetes, hypertension, asthma, cigarette smoking) [email or web address] 12:03 PM Procedure start 12:03 [email or web address] 12:03 PM CathStat 12:04 PM Arianne Ayers RN Position: Water Resources Technical Officer Time in: 12:04 [email or web address] 12:04 PM Swetha Garza RT (R) Position: Scrub Time in: 12: [email or web address] 12:04 PM Benjy Garza RT (R) Position: Monitor Time in: 12: [email or web address] 12:04 PM Case Delayed No [email or web address] 12:05 PM Hair removed from procedure site in procedure lab using clippers. Bilateral groin prepped with Chloraprep by Swetha Garza (R), safety strap applied then patient was draped. Skin intact. [email or web address] 12:06 PM Recorded ECG: HR=97 Condition=Condition 1 12:07 PM Vitals capture started with the following parameters, Patient=Adult, Interval=3 min, Initial Tvescsjl=055 mmHg, Deflation Rate=5 mmHg, Cuff placed on Right Arm 12:07 PM Vitals capture stopped. 12:07 PM Vitals capture started with the following parameters, Patient=Adult, Interval=3 min, Initial Qqedpaol=738 mmHg, Deflation Rate=5 mmHg, Cuff placed on Right Arm 12:08 PM Clinical Presentation: Non-STEMI [email or web address] 12:08 PM HR=77 bpm, TPXN=182/76 mmhg, SpO2=99.0 %, Resp=27 B/min, Comment=NSR 12:09 PM Time: 12:09 Versed 2 mg Intravenous Given by Arianne Ayers RN [place] [address] 12:09 PM Time: 12:09 Fentanyl 25 mcg Intravenous Given by Arianne Ayers RN [place] [address] 12:09 PM Time: 12:09 Oxygen on at 2 L/min per nasal cannula by Arianne Ayers RN [place] [address] 12:11 PM BX=249 bpm, EYGS=752/72 mmhg, SpO2=99.0 %, Resp=24 B/min, Comment=NSR 12:13 PM Time: 12:12 Oxygen on at 4 L/min per nasal cannula by Arianne Ayers RN [place] [address] 12:14 PM HR=78 bpm, URDQ=015/65 mmhg, KnU8=673.0 %, Resp=17 B/min, Comment=NSR 12:15 PM Time: 12:00 Patient comfortable and pain free: Yes [place] [address] 12:15 PM Time: 12:00LOC: 4 = Oriented but drowsy [place] [address] 12:15 PM Pressure channel 1 zeroed. 12:17 PM HR=78 bpm, CZFB=378/64 mmhg, EbT7=760.0 %, Resp=24 B/min, Comment=NSR 12:20 PM HR=72 bpm, ZMNR=583/58 mmhg, SpO2=99.0 %, Resp=19 B/min, Comment=NSR 12: PM Time out performed according to hospital policy [place] [address] 12: PM Time: : 19 ml Lidocaine 2% to right groin Subcutaneous Given by Damian Chapman MD, [place] [id number] 12: PM 0.035 145cm Navilyst 3mmJ wire [id number] [place] [address] 12:23 PM HR=75 bpm, AZGL=057/56 mmhg, GvM1=404.0 %, Resp=21 B/min, Comment=NSR 12:25 PM Access obtained by percutaneous puncture. 4Fr 10cm Terumo [place] sheath placed in right Femoral artery. [id number] [place] [address] 12:25 PM Bolus angiogram of right Femoral complete: 4 ml/sec for a total of 7 mls [place] [address] 12: PM Sheath exchanged for a 5 Fr 11 cm Terumo [place] sheath [id number] [place] [address] 12:26 PM HR=72 bpm, YYZN=824/62 mmhg, YvW5=996.0 %, Resp=21 B/min, Comment=NSR 12: PM 5Fr FL 4 catheter inserted over the wire [place] [address] 12: PM LCA angiography performed in multiple views. [place] [address] 12:28 PM Recorded Pressure: Ao, HR=76, Condition=Condition 1 (Aorta) Ao 101/71/86 12:29 PM HR=70 bpm, ZRZQ=899/59 mmhg, XrX2=584.0 %, Resp=23 B/min, Comment=NSR 12:29 PM Lesion found in Mid LAD. Pre Stenosis: 30 Pre ELOY Flow: [place] [address] 12:29 PM Mid/Distal Left Anterior Descending Coronary Artery and diagonal branches with 30% stenosis. If graft is supplying this area, 0 % stenosis [place] [address] 12:29 PM Catheter removed [place] [address] 12:29 PM 5Fr FR 4 catheter inserted over the wire [place] [address] 12:30 PM RCA angiography performed in multiple views. [place] [address] 12:30 PM Time: 12:15 Patient comfortable and pain free: Yes [place] [address] 12:30 PM Time: 12:15LOC: 4 = Oriented but drowsy [place] [address] 12:30 PM Coronary Dominance: right [place] [address] 12:31 PM Catheter removed [place] [address] 12:31 PM 5Fr Pigtail catheter inserted over the wire [place] [address] 12:31 PM Catheter selectively placed in left ventricle [place] [address] 12:31 PM Bolus angiogram of left Ventricle complete: 12 ml/sec for a total of 30 mls [place] [address] 12:32 PM Recorded Pressure: LV, HR=79, Condition=Condition 1 (Left Ventricle) LV 122/10/27 12:32 PM HR=77 bpm, AORV=593/69 mmhg, YfK9=197.0 %, Resp=22 B/min, Comment=NSR 12:32 PM Recorded Pressure: LV, Ao, HR=79, Condition=Condition 1 (Left Ventricle) LV 126/6/20, (Aorta) Ao 122/53/92 12:33 PM Catheter removed [place] [address] 12:34 PM Physician reviewing films [place] [address] 12:35 PM Procedure completed at 12:35 [place] [address] 12:35 PM Sign out completed: Radiation Dose 113.06 mGy Fluoro Time: 0.7 Isovue 370 - 200ml contrast 56 ml given by Damian Chapman MD, [facility]. Complications: NoneCardiac Rehab Consult needed: NoConfirmed administered medications: Yes [email or web address] 12:35 PM HR=76 bpm, WQRZ=596/67 mmhg, XyI6=847.0 %, Resp=23 B/min, Comment=NSR 12:35 PM Isovue 370 - 200ml,1 Bottle(s) used. [email or web address] 12:36 PM Post ECG NSR [email or web address] 12:36 PM Post Blood Pressure 122/67 [email or web address] 12:36 PM Information taught Cardiac Cath [place] [address] 12:36 PM Education needs Procedure, Plan of Care, and Disease Process [email or web address] 12:36 PM Learning barriers :Sedated [email or web address] 12:36 PM Education Methods Verbal [email or web address] 12:36 PM Education evaluation Needs further instruction [email or web address] 12:37 PM Family placed in consult room. [email or web address] 12:37 PM Complications: None [email or web address] 12:37 PM Fluoro Time: 0.7 [email or web address] 12:37 PM Isovue 370 - 200ml contrast 56 ml given by Damian Chapman MD, [facility]. [email or web address] 12:38 PM Radiation Dose 113.06 mGy [email or web address] 12:38 PM HR=73 bpm, HZSH=353/78 mmhg, VpS1=338.0 %, Resp=17 B/min, Comment=NSR 12:40 PM Arterial using manual compression and V+ Pad by Swetha Garza RT (R) [email or web address] 12:41 PM HR=67 bpm, NIBP=90/51 mmhg, XaS5=855.0 %, Resp=18 B/min, Comment=NSR 12:41 PM Lucy Evans RN Position: Water Resources Technical Officer Time in: 12:41 [email or web address] 12:44 PM HR=69 bpm, JYQE=681/78 mmhg, IhQ4=251.0 %, Resp=15 B/min, Comment=NSR 12:45 PM Report given to henny OROURKE Pt will be going to Room #35. 12:45 [email or web address] 12:45 PM Time: 12:30LOC: 5 = Fully awake and oriented or at pre-proc level [email or web address] 12:45 PM Time: 12:30 Patient comfortable and pain free: Yes [email or web address] 12:47 PM HR=70 bpm, EQGR=800/67 mmhg, SpO2=98.0 %, Resp=14 B/min, Comment=NSR 12:50 PM HR=70 bpm, HFGB=032/88 mmhg, SpO2=99.0 %, Resp=18 B/min, Comment=NSR 12:54 PM Site status No bleeding/hematoma - Rt Groin as reported by Swetha Garza RT (R) at 12:54 pressure held 14 min. [email or web address] 12:55 PM Opsite applied [email or web address] 12:55 PM Delay to floor No [email or web address] 12:56 PM Patient out of room: 12:56 [email or web address] Complications Complication None None Hemodynamics Pressures Site Systolic/A Wave Diastolic/V Wave Mean AO 101 71 86 LV 122 10 27 LV 126 6 20 AO 122 53 92 Post Procedure Information Blood Pressure: 122/67 mmHg Rhythm: NSR Post procedural instructions were given Closure Device Time Device Success/Fail 06/12/2017 12:40:00 PM Manual Compression Site Checks Time Location Status Staff Sheath In? Note 12:54 PM Rt Groin No bleeding/hematoma Swetha Garza RT (R) Pulses Time Site Pre-Procedure Post-Procedure Note 06/12/2017 12:08:00 PM Bilateral DP 1+ 06/12/2017 12:08:00 PM Bilateral radial 2+ Updated by Benjy Garza RT (R) on 06/12/2017 12:56:56 PM RT Danae electronically signed on 06/12/2017 12:57:28 PM with status of Final
[2017-06-12 13:09] LABS: Hepatitis B Core IgM Nonreactive (Nonreactive); Hepatitis B Surface Antibody 0.06 mIU/mL
[2017-06-12] MEDS: *HR* LORazepam 2 MG/ML VIAL IVP PRN (14:44)
[2017-06-12 16:31] VITALS: BP 92/66
--- NOTE | 2017-06-12 16:39 | Discharge Summary ---
Date of Encounter: 06/12/17 Time of Encounter: 09:00 (and 1530) - Discharge Diagnosis (1) Takotsubo cardiomyopathy Priority: Primary Status: Acute (2) NSTEMI (non-ST elevated myocardial infarction) Priority: Primary Status: Acute (3) Chest pain Priority: Primary Status: Resolved Qualifiers: Chest pain type: unspecified Qualified Code(s): R07.9 - Chest pain, unspecified (4) Elevated troponin Priority: Primary Status: Acute Comments: trended back down. LHC revealed decreased EF c/w Takotsumbo CMPY; will treat her anxiety and have her followup outpatient (5) Headache Priority: Secondary Status: Chronic Comments: Patient denied headache at time of discharge. Seen and cleared for outpatient follow-up per neurology. Qualifiers: Headache type: unspecified Headache chronicity pattern: unspecified pattern Intractability: not intractable Qualified Code(s): R51 - Headache (6) Emotional instability (excessive) Priority: Secondary Status: Chronic Comments: Chronic for this patient according to her and her family. Patient cycles between severe anxiety, severe anger and severe emotional distress rapidly and frequently. Recommend close outpatient followup with psychiatry for consideration of mood stabilizers. Patient stating she was on amitriptyline in the past but states she had leg cramps every night. Her family seems to feed into and exacerbate her mood swings as well- maybe family therapy would be beneficial as well. She did very well with IV ativan prn while admitted- sending home on Clonazepam for short term. (7) Intracranial aneurysm Priority: Secondary Status: Chronic Comments: Patient stating that she has an intracranial aneurysm and states that she is followed up at [facility] for this. In review of her chart, she had a brain MRI on 10/02/16 that was read as normal without any mention of an aneurysm. 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 She was then seen at [facility] on 09/25/16 by neurology and was instructed to follow-up with her primary care provider and she was started on gabapentin at that time without intervention indicated. During this visit at [facility], she was also seen by neurosurgery who stated that her symptoms at that time which consisted of transient left sided face paresthesias were not attributed to her small aneurysm and she was again recommended to follow up outpatient. According to the neurologist that saw her at [facility], she had complained of transient migratory paresthesias to several parts of her body that would not localized to a dermatomal distribution or a spinal cord level and at that time, the neurologist surmised this was likely secondary to her anxiety and she was recommended to follow up outpatient with her primary care provider. Neurology has been brought on board who has reviewed her charting as well and has signed off at this time. (8) Hypertension Priority: Secondary Status: Chronic Comments: Controlled, follow-up outpatient Qualifiers: Hypertension type: essential hypertension Qualified Code(s): I10 - Essential (primary) hypertension (9) Nodule of finger of left hand Priority: Secondary Status: Chronic Comments: In review of her chart in [facility], her medical history regarding whether or not she has an aneurysm in her finger is a bit unclear. Conflicting results whether or not she has an aneurysm in her finger whether or not it is simply carpal tunnel noted in [facility]. In any event, she can follow up outpatient regarding this concern. Her hands and fingers are both neurovascularly intact, and can be addressed outpatient. Rheumatology has also been brought on board and has cleared her for outpatient follow-up from a rheumatological standpoint- vasculitis unlikely. - Discharge Medications Prescriptions: Aspirin 325 mg PO DAILY #30 tab clonazePAM [Clonazepam] 0.25 mg PO BID PRN #10 tab.rapdis PRN Reason: Anxiety Metoprolol XL (24 HR) Succ [Toprol Xl] 100 mg PO BID #120 mg Home Medications: Cyclobenzaprine HCl 5 mg PO HS 06/10/17 [History] Esomeprazole Magnesium [Nexium] 20 mg PO QAM 06/10/17 [History] Gabapentin [Neurontin] 200 mg PO HS 06/10/17 [History] Ibuprofen [Advil] 200 - 400 mg PO Q6H PRN 06/10/17 [History] Lisinopril [Zestril] 10 mg PO QAM 06/10/17 [History] Triamcinolone Acetonide 1 appl TP BID 06/10/17 [History] Aspirin 325 mg PO DAILY #30 tab 06/12/17 [Rx] Metoprolol XL (24 HR) Succ [Toprol Xl] 100 mg PO BID #120 mg 06/12/17 [Rx] clonazePAM [Clonazepam] 0.25 mg PO BID PRN #10 tab.rapdis 06/12/17 [Rx] Allergies/Adverse Reactions: Allergies sulfamethoxazole [From Bactrim] Allergy (Verified 09/23/16 19:09) Anaphylaxis trimethoprim [From Bactrim] Allergy (Verified 09/23/16 19:09) Anaphylaxis codeine Adverse Reaction (Verified 09/23/16 19:09) Itching Date of admission: 06/12/17 08:02 Primary care physician: Demian Cuellar MD Consults: 06/11/17 01:51 Consult to Neurology [CONS] Routine Consulting Provider: Neurology [facility] Reason for Consult: Headache; H/O small aneurysm of P1 segement of L 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 Call Completed: No 06/11/17 10:53 Consult to Physician [CONS] Routine Consulting Provider: Ronni Méndez Reason for Consult: vasculitis Call Completed: Yes 06/12/17 07:56 Consult to Cardiac Rehabilitation-Phase1 [CONS] Routine Comment: Reason for Consult: NSTEMI Call Completed: No Discharging clinician: Kelsy Shaikh Anticipated date of discharge: 06/12/17 - Patient Status Disposition: Home, Self-Care Condition: Fair Functional capacity at discharge: independent ambulation Overall status at discharge: patient is progressing back to baseline - Discharge Instructions Instructions: Right Heart Catheterization (DC) Follow Up With: Ronni Méndez DO [Partnered Physician] - 06/30/17 3:30 pm Madi Franks DO [Partnered Physician] - (Office to contact patient at home with appointment time. ) Demian Cuellar MD [Primary Care Provider] - 06/15/17 2:45 pm Additional Instructions: Follow-up with automobile rental clerk, mail superintendent, and primary care provider as scheduled. FEMORAL HEART CATH DISCHARGE INFORMATION STOP SMOKING: If you smoke, STOP. Smoking or tobacco use significantly increases your risk of heart disease because nicotine causes the arteries to narrow or constrict. It also causes fats to stick to the artery. Your chances of having a heart attack are greatly increased if you continue to smoke. For more information, call the education line for smoking cessation 8-488-YCUZUKG EAT A LOW FAT/CHOLESTEROL/SODIUM DIET: This diet may help reduce your chances of having a heart attack. LIFTING: Avoid lifting anything more than 10 pounds for 5-7 days Prior to straining, laughing, sneezing and/or coughing, apply manual pressure directly over insertion site. ACTIVITY: You may walk or climb stairs as tolerated You can resume sexual activity as tolerated In general, you are encouraged to engage in a minimum of 30 minutes or more of moderate intensity physical activity, such as brisk walking, daily or at least 3 -4 times weekly BATHING Do not submerge the site into water (bath tub, hot tub, swimming pool) for 1 week. This can be a source for infection into the blood stream. You may shower after 24 hours SITE CARE: After 24 hours, you may remove the dressing and leave the site open to air. Keep the site clean and dry. Clean gently and pat dry. You can expect bruising and tenderness that gradually resolve within a week or two. Return to work as instructed per your physician Resume driving as instructed per physician Keep all scheduled follow up appointments Resume medications as instructed IMPORTANT: If prescribed a Platelet Aggregation Inhibitor such as, Plavix, Brilinta or Effient: Duration of therapy is minimum one year These medications are often used in combination with Aspirin in prevention of future heart attacks Never discontinue unless consult with your Industrial Hygienist STROKE (CVA) Risk factors for a stroke are: Age, cigarette smoking, diabetes, excessive alcohol consumption, family history, high blood pressure, overweight, physical inactivity, prior stroke, heart attack, diagnosis of carotid artery stenosis or other artery disease. Warning signs: Sudden numbness or weakness of the face, arm or leg; especially on one side of the body, sudden confusion, trouble speaking or understanding, sudden trouble seeing in one or both eyes, sudden trouble walking, dizziness, loss of balance or coordination, sudden severe headache with no cause. Call 911 or go to the Emergency Room. CONGESTIVE HEART FAILURE: If you have been diagnosed with Congestive Heart Failure (CHF) and your symptoms return, make an appointment with your physician Weigh yourself daily. Notify your physician if you have a weight gain of two or more pounds in one day or five or more pounds in one week. If you experience any difficulty breathing, please call 911 BLEEDING: Although the risk of bleeding is minimal, it can happen. If you have any bleeding from the site, apply firm pressure above the puncture site for 10-15 minutes. If the bleeding does not stop, continue manual pressure and call 911 Contact your physician if: You develop a fever greater than 101 degrees Fahrenheit Your site becomes reddened or has any drainage You have an increase in pain or burning at the site or if a large knot forms at the site. If you experience chest pain, shortness of breath, dizziness, or extreme tiredness, stop the activity and rest. Please notify your physicians office if you experience any of these symptoms and they are not relieved by rest please call 911! - Diet and Activity Activity: as per the cardiac rehab, increase activity as tolerated Diet: low salt diet Hospital course: Ms. Uribe is a 57 year old female with past medical history of hypertension, fibromyalgia, intracranial aneurysm, GERD, cholecystectomy, hysterectomy, and anxiety. The patient presented to the emergency department with multiple chief complaints. She was initially seen for a headache that resolved. Patient was also very concerned stating that she has an aneurysm in her finger. Her headache had resolved so she was initially set to be discharged from the emergency department, at which time, she began to experience severe chest pain described as midsternal and located, pressure-like, severe, and radiating to her back. She also endorses nausea. She denies shortness of breath, sweating, palpitations. She denied abdominal pain, dysuria. Chest x-ray negative. She was then admitted to the hospitalist service for further evaluation and management. Troponin was elevated and cardiology was brought on board for suspected NSTEMI. Troponin peaked at 0.63 then trended back down. Patient continued to endorse intermittent chest pressure but denied overt chest pain while admitted. Plan was for cardiology to performed a left heart catheter however her possible brain aneurysm warranted further investigation prior to proceeding. Neurology was brought on board as well as rheumatology. Patient stating that she has an intracranial aneurysm and states that she has followed up at [facility] for this. In review of her chart, she had a brain MRI on that was read as normal without any mention of an aneurysm. 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 She was then seen at [facility] on 09/25/16 by neurology and was instructed to follow-up with her primary care provider and she was started on gabapentin at that time without intervention indicated. During this visit at [facility], she was also seen by neurosurgery who stated that her symptoms at that time which consisted of transient left sided face paresthesias were not attributed to her small aneurysm and she was again recommended to follow up outpatient. According to the neurologist that saw her at [facility], she had complained of transient migratory paresthesias to several parts of her body that were not localized to a dermatomal distribution or a spinal cord level and at that time, the neurologist surmised this was likely secondary to her anxiety and she was recommended to follow up outpatient with her primary care provider. Neurology during this visit cleared the patient for outpatient follow-up and cleared her for the cardiac procedure. Patient had a left heart catheter which revealed mild CAD and an ejection fraction of 35% consistent with Takotsumbo cardiomyopathy. Per cardiology recommendations, her metoprolol was switched to Toprol-XL and she will follow up outpatient with cardiology. During this admission, patient displayed severe emotional instability that she and her family state are chronic for her. Patient with cycle between severe anxiety, severe anger, and severe emotional distress rapidly and frequently while admitted. She was treated with IV Ativan with much success in her ability to cope and in her disposition. Strongly recommend close outpatient follow-up with her primary care provider with referral to psychiatry for consideration of mood stabilizers. Her family also fed into her fears and exacerbated her mood swings at times-recommend family counseling as well. Patient had severe anxiety regarding her intracranial aneurysm even though she was seen by 3 neurologist and a neurosurgery and and the aneurysm is 1.5 mm and not causing any of her symptoms and is not a great clinical concern. She is also concerned about an alleged aneurysm in her finger however in review of her chart in [facility], her medical history regarding whether or not she has an aneurysm in her finger is a bit unclear. Conflicting results whether or not she has an aneurysm in her finger whether or not it is simply carpal tunnel noted in [facility]. In any event, she can follow up outpatient regarding this concern. Her hands and fingers are both neurovascularly intact, and can be addressed outpatient. Rheumatology was brought on board during this admission and cleared her for outpatient follow-up from a rheumatological standpoint with vasculitis unlikely. Regarding her mood stabilizers, she has tried amitriptyline in the past but stated that she had leg cramps every night. She responded well to Ativan, I have written her for a small supply of clonazepam for short-term assistance with her severe anxiety given her Takotsumbo cardiomyopathy. Further treatment outpatient per her primary care provider. She was discharged home in stable condition with close outpatient follow-up recommended. ITS Impressions Chest X-Ray 06/10/17 19:27 IMPRESSION: No acute cardiopulmonary abnormality. D/ / Ashu Dalton MD / Ashu Dalton MD Interpreting Provider: Ashu Dalton MD Echocardiogram impressions: LVEF 35%. Normal LV chamber size and wall thickness. Moderate segmental left ventricular systolic dysfunction. LV apex somewhat heavily trabeculated. Recommend repeat limited study to evaluate for LV non-compaction as well as thrombus. Mild left ventricular diastolic dysfunction. No significant valvular dysfunction. No evidence of pulmonary hypertension. - Time Spent with Patient Total time spent providing and/or coordinating discharge services: Greater than 30 minutes (time with patient and family and with reviewing charts) - Constitutional Vitals: Temp Pulse Resp BP Pulse Ox 98.0 F 71 16 92/66 95 06/12/17 15:18 06/12/17 16:04 06/12/17 16:04 06/12/17 16:04 06/12/17 16:04 General appearance: Present: A&O X 3, pleasant, no acute distress, obese, answers questions appropriately - Head Head exam: Present: atraumatic, normocephalic - Eye Eye exam: Present: PERRL, conjuntiva pink, sclera anicteric Pupils: Present: PERRL - Neck Neck exam general surgery: Present: supple, trachea midline. Absent: lymphadenopathy - Respiratory Respiratory exam: Present: CTAB. Absent: accessory muscle use, rales, respiratory distress, rhonchi, wheezes - Cardiovascular Cardiovascular exam: Present: RRR, +S1, +S2. Absent: diastolic murmur, gallop, rubs, systolic murmur - GI/Abdominal GI/Abdominal exam: Present: normal bowel sounds, soft, no peritoneal signs. Absent: distended, tenderness - Extremities Exam Extremities exam: Present: warm, radial pulses palpable and symetrical. Absent : calf tenderness, cyanotic, pedal edema - Neurological Exam Neurological exam: Present: alert, CN II-XII intact, normal gait, oriented X3, no focal deficits, strengths equal and symetr throughout. Absent: pronater drift, facial droop, speech deficit - Psychiatric Psychiatric exam: Present: anxious. Absent: suicidal ideation - Expanded Psychiatric Exam Focused psych exam: Present: perseverating, psychomotor agitation, restlessness - Skin Skin exam: Present: dry, intact, normal color, warm - VTE Reasons for not Prescribing Prophylaxis: Treatment not Indicated - Low risk for VTE
[2017-06-12] MEDS ORDERED: Metoprolol XL (24 HR) Succ 50 MG TAB.ER.24H PO SCH (21:00)
[2017-06-15 10:23] LABS: Hepatitis B Core Ab Total NEGATIVE (Negative)
--- NOTE | 2017-06-16 09:05 | Invasive Diagnostic Lab ---
Name: Diane Uribe Date of Study: 06/12/2017 Date: 1960 Ht: 154.9 cm /61.0 in Medical Record#: [id number] Age: 57 Wt: 85.9 kg / 189.38 lb Account/Order#: [id number] Gender: Female BSA: 1.85 Order #: [id number] Fluoro Dose: 113 mGy BMI: 35.8 Procedure Physician: Damian Chapman MD, FACC Referring MD: Referring MD: Procedures Performed: LEFT HEART CATH Iliofemoral angiography Indications: Non-Stemi Impressions: Mild atherosclerotic coronary artery disease. 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 Aggressive risk factor modification. History/Risk Factors: gerd intracranial aneurysm Hypertension Procedure Access obtained in the right Femoral artery by percutaneous puncture. Iliofemoral angiography via R femoral sheath Complications: None, None Contrast: Isovue 56ml Hemodynamics: Pressures Site Systolic/ A Wave Diastolic/ V Wave End Diastolic/ Mean HR AO 101 71 86 76 LV 122 10 27 79 LV 126 6 20 81 AO 122 53 92 76 LV Ventriculography Ejection Method: LV Gram Ejection Fraction: 35% Wall Motion: PURVIS Anterobasal Hyperkinesis Anterolateral Akinesis Apical: Akinesis Inferoapical Akinesis Inferobasal Hyperkinesis Coronary Dominance: right Lesion Findings/Interventions * Left Main Coronary Artery The LMCA is angiographically free of disease. * Left Anterior Descending There is a 30% stenosis in the Mid LAD with moderate systolic bridging. * Circumflex The Circumflex is angiographically free of disease. The 1st Marginal is angiographically free of disease. * Right Coronary Artery The RCA is angiographically free of disease. The Right PDA is angiographically free of disease. Iliofemoral angiography - appropriate sheath placement in FLOOR LAYER HELPER with 60% stenosis in the FLOOR LAYER HELPER. No significant disease in the distal EI, proximal SFA/profunda. Updated by Benjy RESENDEZ (R) on 06/12/2017 12:40:22 PM Damian Chapman MD, FACC electronically signed on 06/16/2017 9:01:03 AM with status of Final
== END 2017-06-12 15:55 | disposition home or self-care (01) | DRG 190 ==
LOC: EMEROO 18:01 → 3BNU 18:01
PROVIDERS: ADMIT Internal Medicine; ATTEND Nurse Practitioner Family

== ENCOUNTER 2017-07-15 17:12 | Observation (INO) ==
--- NOTE | 2017-07-15 18:09 | Emergency Department Note ---
Disposition Clinical Impression: Unstable angina pectoris, Atypical chest pain, Abnormal EKG, Dyspnea on exertion Disposition: Admitted As Inpatient Condition: Good General Adult HPI - General Chief complaint: ED Chest Pain Stated complaint: SOB/Chest pains Time Seen by Provider: 07/15/17 17:20 Source: patient Limitations: no limitations - History of Present Illness Pain Scale: 7 - Related Data Home Medications Medication Instructions Recorded Confirmed Cyclobenzaprine HCl 5 mg PO HS 06/10/17 07/15/17 Esomeprazole Magnesium [Nexium] 20 mg PO QAM 06/10/17 07/15/17 Gabapentin [Neurontin] 200 mg PO HS 06/10/17 07/15/17 Ibuprofen [Advil] 200 - 400 mg PO Q6H PRN 06/10/17 07/15/17 Lisinopril [Zestril] 10 mg PO QAM 06/10/17 07/15/17 Triamcinolone Acetonide 1 appl TP BID 06/10/17 07/15/17 Aspirin Enteric Coated [Aspirin EC] 324 mg PO DAILY 07/15/17 07/15/17 Atorvastatin Calcium [Lipitor] 20 mg PO HS 07/15/17 07/15/17 Previous Rx's Medication Instructions Recorded Metoprolol XL (24 HR) Succ [Toprol 100 mg PO BID #120 mg 06/12/17 Xl] Allergies Allergy/AdvReac Type Severity Reaction Status Date / Time sulfamethoxazole Allergy Anaphylaxis Verified 07/15/17 17:23 [From Bactrim] trimethoprim [From Bactrim] Allergy Anaphylaxis Verified 07/15/17 17:23 codeine AdvReac Itching Verified 07/15/17 17:23 Past Medical History - Past Medical History Medical history: Reports: GERD, hypertension, other Surgical history: Reports: cholecystectomy, hysterectomy Psychiatric history: Reports: anxiety 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 Urbano. She presents with a complaint of chest pain. She was seen here last month with severe chest discomfort and had a heart catheter that showed clean arteries except for a 30% blockage in one of the arteries. However she had Takotsubo cardiomyopathy and elevated cardiac enzymes. Today she is having similar pain but no where near the intensity of last months presentation. She was requesting an echocardiogram to see if she is "gaining ground" in her healing. Vital signs are good. Patient looks fine. Twelve-lead EKG however shows T-wave inversions across all the precordial leads which were not present on the EKG from last month. We will do a chest pain workup. We will consult cardiology to determine the best method of proceeding with management of the chest discomfort. Disposition will be based on diagnostic results and reevaluation and consultation. Time: 18:09 Vital Signs Temperature 97.6 F 07/15/17 17:14 Pulse Rate 83 07/15/17 17:14 Respiratory Rate 18 07/15/17 17:14 Blood Pressure 123/68 07/15/17 17:14 O2 Sat by Pulse Oximetry 96 07/15/17 17:14 Temperature 97.8 F 07/16/17 11:40 Pulse Rate 73 07/16/17 11:40 Respiratory Rate 17 07/16/17 11:40 Blood Pressure 117/77 07/16/17 11:40 O2 Sat by Pulse Oximetry 95 07/16/17 11:40 Oxygen Delivery Oxygen Delivery Room Air Medical Decision Making - Lab Data Result diagrams: 07/16/17 02:56 07/16/17 02:56 Lab Results 07/15/17 07/15/17 07/15/17 Range/Units 11:12 18:00 18:00 WBC 6.6 (4.3-11.1) K/mcL RBC 4.52 (3.82-4.97) M/mcL Hgb 13.3 (11.5-15.4) g/dL Hct 40.5 (35.3-44.9) % MCV 89.6 (83.0-100.0) fL MCH 29.4 (28.0-33.3) pg MCHC 32.8 (31.6-35.5) g/dL RDW 12.9 (11.5-14.5) % Plt Count 199 (140-400) K/mcL MPV 9.1 L (9.4-12.4) fL Immature Gran % 0.3 (0-4) % Seg Neutrophils % 53.8 % Lymphocytes % 34.1 % Monocytes % 7.3 % Eosinophils % 4.0 % Basophils % 0.5 % Neutrophils # 3.5 (1.6-8.9) K/mcL Lymphocytes # 2.2 (0.6-4.6) K/mcL Monocytes # 0.5 (0.0-1.3) K/mcL Eosinophils # 0.3 (0.0-0.6) K/mcL Basophils # 0.0 (0.0-0.2) K/mcL PT (9.4-12.1) Seconds INR APTT (26.0-36.0) Seconds Sodium (136-145) mEq/L Potassium (3.5-4.5) mEq/L Chloride (98-109) mEq/L Carbon Dioxide (19-29) mEq/L BUN (7-20) mg/dL Creatinine (0.57-1.11) mg/dL Est GFR ( Amer) (> 60) Est GFR (Non-Af Amer) (> 60) BUN/Creatinine Ratio (6-26) Glucose (70-99) mg/dL Calculated Osmolality (280-300) Calcium (8.6-10.8) mg/dL Troponin I (0-0.03) ng/mL B-Natriuretic Peptide 26 (0-100) pg/mL Urine Color Yellow (Yellow) Urine Clarity Cloudy A (Clear) Urine pH 7.0 (5.0-8.0) pH Units Ur Specific [place] 1.013 (1.010-1.025) Urine Protein Negative (Neg-Trace) mg/dL Urine Glucose (UA) Normal (Normal) mg/dL Urine Ketones Negative (Negative) mg/dL Urine Blood Negative (Negative) Urine Nitrite Negative (Negative) Urine Bilirubin Negative (Negative) Urine Urobilinogen Normal (Normal) mg/dL Ur Leukocyte Esterase Small H (Negative) Urine Microscopic RBC 0-3 (0-3) per hpf Urine Microscopic WBC 0-3 (0-3) per hpf Ur Squamous Epith Cells Few (None-Few) per lpf Urine Bacteria None Seen (None-Few) per hpf Hyaline Casts None Seen (None-Few) per lpf Urine Yeast Few H (None Seen) per hpf Ur Culture Indicated? YES A (NO) 07/15/17 07/15/17 07/15/17 Range/Units 18:00 18:00 18:00 WBC (4.3-11.1) K/mcL RBC (3.82-4.97) M/mcL Hgb (11.5-15.4) g/dL Hct (35.3-44.9) % MCV (83.0-100.0) fL MCH (28.0-33.3) pg MCHC (31.6-35.5) g/dL RDW (11.5-14.5) % Plt Count (140-400) K/mcL MPV (9.4-12.4) fL Immature Gran % (0-4) % Seg Neutrophils % % Lymphocytes % % Monocytes % % Eosinophils % % Basophils % % Neutrophils # (1.6-8.9) K/mcL Lymphocytes # (0.6-4.6) K/mcL Monocytes # (0.0-1.3) K/mcL Eosinophils # (0.0-0.6) K/mcL Basophils # (0.0-0.2) K/mcL PT 11.7 (9.4-12.1) Seconds INR 1.1 APTT 29.2 (26.0-36.0) Seconds Sodium 138 (136-145) mEq/L Potassium 4.2 (3.5-4.5) mEq/L Chloride 103 (98-109) mEq/L Carbon Dioxide 27 (19-29) mEq/L BUN 10 (7-20) mg/dL Creatinine 0.85 (0.57-1.11) mg/dL Est GFR ( Amer) > 60 (> 60) Est GFR (Non-Af Amer) > 60 (> 60) BUN/Creatinine Ratio 12 (6-26) Glucose 101 H (70-99) mg/dL Calculated Osmolality 285 (280-300) Calcium 9.6 (8.6-10.8) mg/dL Troponin I 0.00 (0-0.03) ng/mL B-Natriuretic Peptide (0-100) pg/mL Urine Color (Yellow) Urine Clarity (Clear) Urine pH (5.0-8.0) pH Units Ur Specific [place] (1.010-1.025) Urine Protein (Neg-Trace) mg/dL Urine Glucose (UA) (Normal) mg/dL Urine Ketones (Negative) mg/dL Urine Blood (Negative) Urine Nitrite (Negative) Urine Bilirubin (Negative) Urine Urobilinogen (Normal) mg/dL Ur Leukocyte Esterase (Negative) Urine Microscopic RBC (0-3) per hpf Urine Microscopic WBC (0-3) per hpf Ur Squamous Epith Cells (None-Few) per lpf Urine Bacteria (None-Few) per hpf Hyaline Casts (None-Few) per lpf Urine Yeast (None Seen) per hpf Ur Culture Indicated? (NO) Attestation Statement - Attestation Attestation: I, Dr. Dykes, examined this patient [id number] and my medical decision- making was reviewed with the Resident Physician, Dr. Urbano. I agree with the documented findings, disposition and treatment plan as described except to the extent set forth below. Please see my progress notes for details.
[2017-07-15 18:13] LABS: Basophils % 0.5 %; Eosinophils # 0.3 K/mcL (0.0-0.6); Hematocrit 40.5 % (35.3-44.9); Hemoglobin 13.3 g/dL (11.5-15.4); Immature Granulocytes % 0.3 % (0-4); Lymphocytes # 2.2 K/mcL (0.6-4.6); Lymphocytes % 34.1 %; Mean Corpuscular HGB Conc 32.8 g/dL (31.6-35.5); Mean Corpuscular Hemoglobin 29.4 pg (28.0-33.3); Mean Corpuscular Volume 89.6 fL (83.0-100.0); Mean Platelet Volume 9.1 fL (9.4-12.4); Monocytes # 0.5 K/mcL (0.0-1.3); Monocytes % 7.3 %; Neutrophils # 3.5 K/mcL (1.6-8.9); Platelet Count 199 K/mcL (140-400); Red Blood Count 4.52 M/mcL (3.82-4.97); Red Cell Distribution Width 12.9 % (11.5-14.5); Segmented Neutrophils % 53.8 %
[2017-07-15] MEDS ORDERED: *HR* Heparin 5,000 UNIT/ML VIAL IVP ONE (18:13)
[2017-07-15] MEDS ORDERED: *HR* Heparin 5,000 UNIT/ML VIAL IVP PRN ×2 (18:13)
--- NOTE | 2017-07-15 18:13 | Emergency Department Note ---
Disposition Clinical Impression: Unstable angina pectoris, Atypical chest pain, Abnormal EKG, Dyspnea on exertion Disposition: Admitted As Inpatient Condition: Good Time of Disposition: 19:24 Chest Pain HPI - General Chief Complaint: ED Chest Pain Stated Complaint: SOB/Chest pains Time Seen by Provider: 07/15/17 17:20 Source: patient, family Limitations: no limitations Vital Signs Reviewed: Yes Nursing Notes Reviewed: Yes - History of Present Illness HPI Narrative: 57-year-old female history of hypertension and hyperlipidemia presents with chest pain and shortness of breath. Patient describes intermittent chest pain in the left chest wall as well as new onset shortness of breath. She was recently seen and evaluated roughly a month ago without it troponin 0.63 in the left heart catheterization with minimal vessel disease diagnosed as Takotsubo cardiomyopathy. Patient took 324 mg aspirin 10 AM this morning. States yesterday she attempted to clean the house and was more short of breath and usual. She currently does not have any respiratory distress or conversational dyspnea. Reports being evaluated by her public relations representative Dr. Franks 2 weeks after her discharge on June 12. Admits that she has had intermittent pain since then. Concern for most was the shortness of breath. Denies any fever, cough, abdominal pain. EKG was performed shows new T wave inversion, appears new from prior on 06/10 which is date of her admission. Severity scale (1-10): 7 - Related Data Home Medications Medication Instructions Recorded Confirmed Cyclobenzaprine HCl 5 mg PO HS 06/10/17 07/15/17 Esomeprazole Magnesium [Nexium] 20 mg PO QAM 06/10/17 07/15/17 Gabapentin [Neurontin] 200 mg PO HS 06/10/17 07/15/17 Ibuprofen [Advil] 200 - 400 mg PO Q6H PRN 06/10/17 07/15/17 Lisinopril [Zestril] 10 mg PO QAM 06/10/17 07/15/17 Triamcinolone Acetonide 1 appl TP BID 06/10/17 07/15/17 Aspirin Enteric Coated [Aspirin EC] 324 mg PO DAILY 07/15/17 07/15/17 Atorvastatin Calcium [Lipitor] 20 mg PO HS 07/15/17 07/15/17 Previous Rx's Medication Instructions Recorded Metoprolol XL (24 HR) Succ [Toprol 100 mg PO BID #120 mg 06/12/17 Xl] Allergies Allergy/AdvReac Type Severity Reaction Status Date / Time sulfamethoxazole Allergy Anaphylaxis Verified 07/15/17 17:23 [From Bactrim] trimethoprim [From Bactrim] Allergy Anaphylaxis Verified 07/15/17 17:23 codeine AdvReac Itching Verified 07/15/17 17:23 All systems ED: reviewed and negative except as stated. Review of Systems: As Per HPI Constitutional: Denies: fever, chills Cardiovascular: Reports: chest pain, dyspnea on exertion Respiratory: Reports: dyspnea. Denies: cough Gastrointestinal: Denies: abdominal pain, nausea, vomiting, melena, hematochezia Genitourinary: Denies: urgency, dysuria Musculoskeletal: Denies: back pain, neck pain Integumentary: Denies: rash, abrasion Neurological: Denies: headache, weakness, numbness Psychiatric: Reports: anxiety. 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 Absent : tenderness, rash - Respiratory Respiratory exam: Present: normal lung sounds bilaterally. Absent: respiratory distress, wheezes - Cardiovascular Cardiovascular exam: Present: regular rate, normal rhythm, normal heart sounds - Abdominal Exam Abdominal exam: Present: soft, Non-Tender, normal bowel sounds. Absent: tenderness, distention, guarding, rebound, rigidity - Extremities Exam Extremities exam: Present: normal inspection, full ROM, normal capillary refill. Absent: tenderness, pedal edema, calf tenderness - Neurological Exam Neurological exam: Present: alert, oriented X3 - Psychiatric Psychiatric exam: Present: flat affect - Skin Skin exam: Present: warm, dry, intact, normal color Course - Reevaluation(s) Reevaluation #1: Review of her medical record shows recent hospitalization with elevated troponin 0.63. She had minimal vessel disease no intervention performed at that time. Suspects Takotsubo cardiomyopathy. Due to the unstable angina and dyspnea chest pain workup initiated. A BNP was also ordered due to reduced EF 30%. Review of the labs were unremarkable. Troponin 0. Again the EKG shows some T wave inversion in the septal and lateral leads which were concerning. Cardiology recommends admission and further workup. Her pain as intermittent suspect it could be due to her emotional instability. Ativan ordered. We also started her on heparin low-dose. Patient is in agreement with admission. She is stable for admission. Impression is abnormal EKG, chest pain, and dyspnea on exertion. - Consultations Consultation #1: Spoke with a public relations representative Dr. Guerra, discuss patients ongoing chest pain with the T wave inversion in lateral leads. Recommend sutured it as ischemia recommending heparin or Lovenox. Suggests admission to the medicine for further workup and monitoring. At this time will treat with Ativan to see if that helps and give her heparin. She denies any bloody stool, black tarry stools or hemoptysis. Time: 18:14 Consultation #2: Spoke with on-call hospitalist alvaro Westfall to admit for chest pain, abnormal EKG, dyspnea on exertion. No further orders at this time Time: 19:25 Vital Signs Temperature 97.6 F 07/15/17 17:14 Pulse Rate 83 07/15/17 17:14 Respiratory Rate 18 07/15/17 17:14 Blood Pressure 123/68 07/15/17 17:14 O2 Sat by Pulse Oximetry 96 07/15/17 17:14 Temperature 97.6 F 07/15/17 17:14 Pulse Rate 92 07/15/17 19:01 Respiratory Rate 20 07/15/17 19:01 Blood Pressure 129/87 07/15/17 19:01 O2 Sat by Pulse Oximetry 95 07/15/17 19:01 Oxygen Delivery Oxygen Delivery Room Air Chest Pain - Medical Records Medical records reviewed: Yes I reviewed the patient's medical records. - Lab Data Lab results reviewed: Yes I reviewed the patient's lab results. Result diagrams: 07/15/17 18:00 07/15/17 18:00 Lab Results 07/15/17 07/15/17 07/15/17 Range/Units 18:00 18:00 18:00 WBC 6.6 (4.3-11.1) K/mcL RBC 4.52 (3.82-4.97) M/mcL Hgb 13.3 (11.5-15.4) g/dL Hct 40.5 (35.3-44.9) % MCV 89.6 (83.0-100.0) fL MCH 29.4 (28.0-33.3) pg MCHC 32.8 (31.6-35.5) g/dL RDW 12.9 (11.5-14.5) % Plt Count 199 (140-400) K/mcL MPV 9.1 L (9.4-12.4) fL Immature Gran % 0.3 (0-4) % Seg Neutrophils % 53.8 % Lymphocytes % 34.1 % Monocytes % 7.3 % Eosinophils % 4.0 % Basophils % 0.5 % Neutrophils # 3.5 (1.6-8.9) K/mcL Lymphocytes # 2.2 (0.6-4.6) K/mcL Monocytes # 0.5 (0.0-1.3) K/mcL Eosinophils # 0.3 (0.0-0.6) K/mcL Basophils # 0.0 (0.0-0.2) K/mcL PT (9.4-12.1) Seconds INR APTT (26.0-36.0) Seconds Sodium 138 (136-145) mEq/L Potassium 4.2 (3.5-4.5) mEq/L Chloride 103 (98-109) mEq/L Carbon Dioxide 27 (19-29) mEq/L BUN 10 (7-20) mg/dL Creatinine 0.85 (0.57-1.11) mg/dL Est GFR ( Amer) > 60 (> 60) Est GFR (Non-Af Amer) > 60 (> 60) BUN/Creatinine Ratio 12 (6-26) Glucose 101 H (70-99) mg/dL Calculated Osmolality 285 (280-300) Calcium 9.6 (8.6-10.8) mg/dL Troponin I (0-0.03) ng/mL B-Natriuretic Peptide 26 (0-100) pg/mL 07/15/17 07/15/17 Range/Units 18:00 18:00 WBC (4.3-11.1) K/mcL RBC (3.82-4.97) M/mcL Hgb (11.5-15.4) g/dL Hct (35.3-44.9) % MCV (83.0-100.0) fL MCH (28.0-33.3) pg MCHC (31.6-35.5) g/dL RDW (11.5-14.5) % Plt Count (140-400) K/mcL MPV (9.4-12.4) fL Immature Gran % (0-4) % Seg Neutrophils % % Lymphocytes % % Monocytes % % Eosinophils % % Basophils % % Neutrophils # (1.6-8.9) K/mcL Lymphocytes # (0.6-4.6) K/mcL Monocytes # (0.0-1.3) K/mcL Eosinophils # (0.0-0.6) K/mcL Basophils # (0.0-0.2) K/mcL PT 11.7 (9.4-12.1) Seconds INR 1.1 APTT 29.2 (26.0-36.0) Seconds Sodium (136-145) mEq/L Potassium (3.5-4.5) mEq/L Chloride (98-109) mEq/L Carbon Dioxide (19-29) mEq/L BUN (7-20) mg/dL Creatinine (0.57-1.11) mg/dL Est GFR ( Amer) (> 60) Est GFR (Non-Af Amer) (> 60) BUN/Creatinine Ratio (6-26) Glucose (70-99) mg/dL Calculated Osmolality (280-300) Calcium (8.6-10.8) mg/dL Troponin I 0.00 (0-0.03) ng/mL B-Natriuretic Peptide (0-100) pg/mL - Radiology Data Radiology results reviewed: Yes I reviewed the patient's radiology results. Chest X-Ray 07/15/17 17:34 IMPRESSION: No acute cardiopulmonary process. D/ / Matthew Villaseñor MD / Matthew Villaseñor MD Interpreting Provider: Matthew Villaseñor MD - EKG Data EKG attestation: Yes I reviewed and interpreted this EKG. EKG results narrative: EKG performed 1737 normal sinus rhythm 78 beats per minute no ST elevations or depression, new T wave inversion seen in the lateral and anterior septal leads compared to old EKG performed 06/10/2017. Concerning for acute ischemia. Continues to complain of some chest pain. Will consult cardiology. Heart Score - Score History: Slightly Suspicious EKG: Non Specific repolarisation Disturbance Age: 45-65 Risk Factors: 1-2 risk factors Troponin: Less than normal limit HEART Score Total: 3
[2017-07-15] MEDS ORDERED: *HR* LORazepam 2 MG/ML VIAL IVP ONE (18:14)
[2017-07-15] MEDS ORDERED: Heparin 25,000 UNIT/500 ML D5W 25,000 UNIT/500 ML MLS IVC SCH (18:15)
[2017-07-15 18:22] LABS: BUN/Creatinine Ratio 12 (6-26); Blood Urea Nitrogen 10 mg/dL (7-20); Calcium 9.6 mg/dL (8.6-10.8); Carbon Dioxide 27 mEq/L (19-29); Chloride 103 mEq/L (98-109); Glucose 101 mg/dL (70-99); Osmolality,Calculated 285 (280-300); Potassium 4.2 mEq/L (3.5-4.5); Sodium 138 mEq/L (136-145); eGFR For African Americans > 60 (> 60); eGFR For Non-African Americans > 60 (> 60)
[2017-07-15 19:13] LABS: INR 1.1; Prothrombin Time 11.7 Seconds (9.4-12.1)
[2017-07-15 19:15] LABS: Activated Partial Thrombo Time 29.2 Seconds (26.0-36.0)
[2017-07-15] MEDS ORDERED: Acetaminophen 325 MG TABLET PO PRN (21:11)
[2017-07-15] MEDS ORDERED: *HR* Morphine 2 MG/ML SYRINGE IVP PRN (21:34)
[2017-07-15] MEDS ORDERED: Nitroglycerin 0.4 MG TAB.SUBL SL PRN (21:38)
--- NOTE | 2017-07-15 21:39 | Internal Med History&Physical ---
<Krystina Mcfarlane - Last Filed: 07/15/17 22:55> Date of Encounter: 07/15/17 Time of Encounter: 20:30 Assessment and Plan (1) ACS (acute coronary syndrome) Current visit: Yes Status: Suspected - Concern of ACS given worsening chest pain & dyspnea on exertion with new diffuse T-wave inversion on EKG. - Patient will be admitted to hospital with close monitoring including telemetry and serial troponin. - Continue heparin drip, aspirin, BB, VIDYA-i, statin. - Morphine and nitro prn chest pain. - Cardiology consulted and appreciate further evaluation and recommendations. Time spent on admission: 45 minutes (2) Takotsubo cardiomyopathy Current visit: No Status: Acute - C on 06/12/17 found mild CAD but LVEF 35% (was 65% per prior echo in March 2017 ) consistent with Takotsubo cardiomyopathy. - Continue BB and VIDYA-i. - Per cardiology note on eCW, repeat echo with definity is recommended to re- evaluate LV to rule out LV thrombus. Will obtain echocardiogram for further evaluation. (3) Vaginal lump Current visit: Yes Status: Acute - Left vulvar bump with tenderness to palpation but no significant erythema or discharge noted on physical exam. - It does not appear to be infected so no antibiotic at this time. - Will check UA for possible UTI given reported dysuria. - Patient may benefit from seeing french polisher if the problem persists. (4) Hypertension Current visit: No Status: Chronic - BP within normal range. - Continue home dose antihypertensive regimen. Qualifiers: Hypertension type: essential hypertension Qualified Code(s): I10 - Essential (primary) hypertension (5) GERD (gastroesophageal reflux disease) Current visit: Yes Status: Chronic - Continue PPI. Qualifiers: Esophagitis presence: esophagitis presence not specified Qualified Code(s) : K21.9 - Gastro-esophageal reflux disease without esophagitis Internal Medicine - H&P: HPI Chief complaint: Worsening chest pain and shortness of breath Admitted From: Emergency Dept Plans for Post Hospital Care: Home History of present illness: Ms. Uribe is a 57 year old female with PMH of HTN, GERD, psoriasis and Takotsubo cardiomyopathy diagnosed on 06/12/17 by [facility] with EF 35%. Patient presented with the complaint of worsening chest pain and shortness of breath over past 24 hours. Patient states having intermittent sharp left-sided chest pain since last month but it gets more frequent and lasts longer recently. It's aggravated by exertion and alleviated when patient took double dose of baby aspirin. Patient also has constant mid chest tightness aggravated by deep breath. Patient 's shortness of breath is mostly on exertion and patient's cough is mostly non- productive. Other associated symptoms include lightheadedness, diaphoresis, chills. Patient reports having right forearm erythema and swelling after a wasp bite 2 weeks ago but that has been 89% resolved. Patient also reports having left vaginal bump for a year but it gets tender and causes dysuria for past one week. EKG in ED showed diffuse T-wave inversions with negative troponin. ED physician discussed the case with Dr. Guerra of [place] [facility] who recommends treating it as ischemia. Heparin was started and patient will be admitted for further work-up. Past Med Surg Social Fam HX - Past Medical History Medical history: GERD, hypertension, other (Takotsubo cardiomyopathy) Psychiatric history: anxiety - Past Surgical History Surgical History: cholecystectomy, hysterectomy - Social History Smoking Status: Never smoker Smokeless Tobacco Status: No Alcohol use: none Drug use: none - Family History Mother Hx Family Cardiac Disorders: Yes ([place]) Hx Family Endocrine Disorder: Yes ([place]) Internal Medicine - H&P: Meds Cyclobenzaprine HCl 5 mg PO HS 06/10/17 [History] Esomeprazole Magnesium [Nexium] 20 mg PO QAM 06/10/17 [History] Gabapentin [Neurontin] 200 mg PO HS 06/10/17 [History] Ibuprofen [Advil] 200 - 400 mg PO Q6H PRN 06/10/17 [History] Lisinopril [Zestril] 10 mg PO QAM 06/10/17 [History] Triamcinolone Acetonide 1 appl TP BID 06/10/17 [History] Metoprolol XL (24 HR) Succ [Toprol Xl] 100 mg PO BID #120 mg 06/12/17 [Rx] Aspirin Enteric Coated [Aspirin EC] 324 mg PO DAILY 07/15/17 [History] Atorvastatin Calcium [Lipitor] 20 mg PO HS 07/15/17 [History] sulfamethoxazole [From Bactrim] Allergy (Verified 07/15/17 17:23) Anaphylaxis trimethoprim [From Bactrim] Allergy (Verified 07/15/17 17:23) Anaphylaxis codeine Adverse Reaction (Verified 07/15/17 17:23) Itching All Systems PM: A 10-system review of systems was performed and is negative for pertinent findings except as documented above in the HPI. - Constitutional Constitutional: chills, fatigue, no anorexia - EENT Eyes: no change in vision Ears: no decreased hearing Nose, mouth and throat: dysphagia (Intermittent) - Cardiovascular Cardiovascular ROS IM: as per HPI, chest pain, diaphoresis, lightheadedness, palpitations, no syncope - Respiratory Respiratory: as per HPI, cough, dyspnea, pain on inspiration, no hemoptysis, no excessive phlegm production - Gastrointestinal Gastrointestinal: no abdominal pain, no diarrhea, no hematochezia, no melena, no nausea, no vomiting - Genitourinary Genitourinary: dysuria, no difficulty urinating, no hematuria - Integumentary Integumentary IM: no pruritus, no rash - Neurological Neurological ROS: no focal weakness, no numbness, no tingling - Hematologic/Lymphatic Hematologic/Lymphatic: no easy bleeding, no easy bruising - Constitutional Vitals: Temp Pulse Resp BP Pulse Ox 97.8 F 81 17 119/76 93 07/15/17 21:37 07/15/17 21:37 07/15/17 21:37 07/15/17 21:37 07/15/17 21:37 General appearance: Present: cooperative, A&O X 3, no acute distress, answers questions appropriately - Head Head exam: Present: atraumatic, normocephalic - Eye Eye exam: Present: EOMI, PERRL, conjuntiva pink, sclera anicteric - ENT ENT exam: Present: mucous membranes moist - Neck Neck exam general surgery: Present: supple, trachea midline. Absent: lymphadenopathy - Respiratory Respiratory exam: Present: chest wall tenderness (mid chest tightness aggravated by palpation), CTAB. Absent: accessory muscle use, rales, rhonchi, wheezes - Cardiovascular Cardiovascular exam: Present: RRR, +S1, +S2. Absent: diastolic murmur, gallop, rubs, systolic murmur - GI/Abdominal GI/Abdominal exam: Present: normal bowel sounds, soft, no peritoneal signs. Absent: distended, tenderness - External exam: Present: lesions (A small skin-color bump at left vulva with some tenderness to palpation but no significant discharge. ) - Extremities Exam Extremities exam: Present: warm, radial pulses palpable and symmetrical. Absent : calf tenderness, cyanotic, pedal edema Additional comments: Small nodule at where patient reports wasp bite was on right forearm but no significant erythema, swelling or tenderness noted. - Neurological Exam Neurological exam: Present: CN II-XII intact, oriented X3, no focal deficits. Absent: pronater drift, facial droop, speech deficit - Skin Skin exam: Present: dry, warm Internal Med - H&P Results - Labs CBC & Chem 7: 07/15/17 18:00 07/15/17 18:00 - EKG Data Prior EKG available for review: yes When compared to previous EKG: there are significant changes EKG comments: 07/15/17 22:26 Diffuse T-wave inversion (in leads I, II, aVR, aVL, V2-V6), concerning of ischemia. <Matt Jennings - Last Filed: 07/16/17 02:23> Date of Encounter: 07/16/17 Time of Encounter: 01:05 - Cardiovascular Cardiovascular ROS IM: chest pain, diaphoresis, dyspnea - Respiratory Respiratory: dyspnea, no hemoptysis - Gastrointestinal Gastrointestinal: no belching, no bloating, no heartburn - Genitourinary Genitourinary: dysuria, no flank pain - Musculoskeletal Musculoskeletal ROS IM: no arthralgias, no back pain - Neurological Neurological ROS: no focal weakness, no frequent falls, no headache(s) - Psychiatric Psychiatric: no anxiety, no depression - Endocrine Endocrine IM: no polydipsia, no polyuria - Allergic/Immunologic Allergic/Immunologic: no wheezing, no GI upset with certain foods - Constitutional Vitals: Temp Pulse Resp BP Pulse Ox 97.7 F 84 18 120/75 94 07/15/17 23:26 07/15/17 23:26 07/15/17 23:26 07/15/17 23:26 07/15/17 23:26 General appearance: Present: A&O X 3, no acute distress - Eye Eye exam: Present: PERRL. Absent: scleral icterus - Neck Neck exam general surgery: Present: full ROM, supple - Expanded Neck Exam Neck exam: Absent: carotid bruit - Respiratory Respiratory exam: Present: CTAB. Absent: rales, rhonchi, wheezes - Cardiovascular Cardiovascular exam: Present: RRR, +S1, +S2 - GI/Abdominal GI/Abdominal exam: Present: soft. Absent: tenderness - Back Exam Back exam: Present: normal inspection. Absent: CVA tenderness (L), CVA tenderness (R) - Neurological Exam Neurological exam: Present: alert, CN II-XII intact, oriented X3, no focal deficits - Psychiatric Psychiatric exam: Present: normal affect, normal mood Internal Med - H&P Results - Labs CBC & Chem 7: 07/15/17 18:00 07/15/17 18:00 Labs: Cardiac Enzymes 07/16/17 Range/Units 00:16 Troponin I 0.00 (0-0.03) ng/mL - EKG Data -: EKG Interpreted by Myself - EKG Data Prior EKG available for review: yes Interpretation IM: suggestive of ischemia EKG comments: 07/16/17 02:19 NSR with flipped T waves and subtle ST-T depression in anterolateral leads consistent with ischemia - Diagnostic Studies Chest x-ray Status: image reviewed by me (negative) - Attending Attestation I discussed the patient [place], PMH, ROS, lab data, and exam findings with Dr. Mcfarlane. I then saw and examined patient independently as well. Pt currently with minimal chest pain. I reviewed her records from last month and the cardiac procedures performed. She has a cardiomyopathy, and we'll repeat an ECHO as noted per Dr. Mcfarlane. We'll ask cardiology to see her given her chest pain and significant EKG changes noted. I discussed the plan with patient and daughter, and they are both in agreement. Other than my comments above and noted exam findings, I agree with Dr. Mcfarlane's assessment and plan.
[2017-07-16 03:16] LABS: Hematocrit 37.2 % (35.3-44.9); Hemoglobin 12.2 g/dL (11.5-15.4); Mean Corpuscular HGB Conc 32.8 g/dL (31.6-35.5); Mean Corpuscular Hemoglobin 29.9 pg (28.0-33.3); Mean Corpuscular Volume 91.2 fL (83.0-100.0); Mean Platelet Volume 9.3 fL (9.4-12.4); Platelet Count 169 K/mcL (140-400); Red Blood Count 4.08 M/mcL (3.82-4.97)
[2017-07-16 03:27] LABS: BUN/Creatinine Ratio 13 (6-26); Blood Urea Nitrogen 11 mg/dL (7-20); Calcium 8.9 mg/dL (8.6-10.8); Carbon Dioxide 26 mEq/L (19-29); Chloride 105 mEq/L (98-109); Glucose 108 mg/dL (70-99); Osmolality,Calculated 290 (280-300); Potassium 3.9 mEq/L (3.5-4.5); Sodium 140 mEq/L (136-145); eGFR For African Americans > 60 (> 60); eGFR For Non-African Americans > 60 (> 60)
[2017-07-16 03:33] LABS: Activated Partial Thrombo Time 123.5 Seconds (26.0-36.0)
[2017-07-16 03:40] LABS: Heparin anti-factor XA UFH 0.71 IU/mL (0.30-0.70)
[2017-07-16 03:59] LABS: Thyroid Stimulating Hormone 6.556 mcIU/mL (0.350-4.840)
[2017-07-16] MEDS ORDERED: Perflutren Lipid Microsphere 1.3 ML in 0.9 % Sodium Chloride 8.7 ML IVP ONE ×2 (07:55→07:57)
[2017-07-16] MEDS: Aspirin Enteric Coated 81 MG Tablet PO SCH (08:49)
--- NOTE | 2017-07-16 09:26 | Cardiology Consult Note ---
<Nahum Dean - Last Filed: 07/16/17 10:04> Date of Encounter: 07/16/17 Time of Encounter: 09:26 Assessment and Plan (1) Takotsubo cardiomyopathy Current Visit: No Status: Acute Recent diagnosis of takostubo cardiomyopathy with EF 35%. LHC completed 06/12/17 showed mild non-obstructive CAD. TTE showed EF 35% with heavily trabeculated LV. Repeat study was recommended to evaluate for LV non-compaction or LV thrombus was recommended. Repeat TTE was ordered in outpt setting but not completed yet. TTE now complete. I discussed with Dr. Ramos, TTE shows normal EF and no concerning findings in the LV. There was an incidental finding of muscular banding in the LV apex. D/c heparin gtt. Currently euvolemic. Continue current cardiac meds. (2) Chest pain Current Visit: No Status: Resolved Atypical chest pain. Pain occurs with deep breath and on palpation. Troponin negative. EKG shows non-specific t wave changes. LHC one month ago showed mild non-obstructive disease. 30% stenosis mLAD and moderate systolic bridging. EF 35% at that time. Repeat TTE shows EF returned to normal. No further cardiac testing recommended. Continue out-pt f/u. Continue asa, statin, and bb. Qualifiers: Chest pain type: unspecified Qualified Code(s): R07.9 - Chest pain, unspecified Discussion w patient/family: The assessment and plan as outlined above was discussed with the patient and/or family members who expressed understanding and agreement. All questions were answered. Thank you for involving us in the care of your patient. Please call with any questions. History of Present Illness Consult date: 07/16/17 Requesting physician: Matt Jennings Consult reason: Chest pain Chief complaint: Chest pain and SOB History of present illness: Ms. Uribe is a 57 year old female with a history of hypertension, small cerebral aneurysm, and recent diagnosis of takostubo cardiomyopathy who presents with increasing SOB and sharp left sided chest pain starting after she was sweeping her jew. She reports having continued chest pain since her diagnosis of takostubo cardiomyopathy. The pain usually resolves quickly. Yesterday the pain persisted despite rest. On my exam she is pain free at rest. When asked to take deep breaths she reports pain with inspiration. She associates her symptoms with lightheadedness and fatigue. She underwent LHC 06/12/17 that showed mild CAD, 30% stenosis in the LAD, and EF 35% with takotsubo CMP. TTE in March 2017 showed EF 65%. TTE 06/12/17 showed EF 35%. The LV apex was heavily trabeculated. Repeat limited echo was recommended. She was being set up in the out-patient setting for repeat limited echo. Echocardiogram was completed early this morning. She is currently on heparin gtt for possible ACS/ LV thrombus. Past Med Surg Social Fam HX - Past Medical History Medical history: GERD, hypertension, other (Takotsubo cardiomyopathy) Psychiatric history: anxiety - Past Surgical History Surgical History: cholecystectomy, hysterectomy - Social History Smoking Status: Never smoker Smokeless Tobacco Status: No Alcohol use: none Drug use: none - Family History Mother Hx Family Cardiac Disorders: Yes ([place]) Hx Family GI Disorders: Yes (Cirrhosis) Hx Family Endocrine Disorder: Yes (DM) Hx Family Autoimmune Disorders: Yes Medications and Allergies Cyclobenzaprine HCl 5 mg PO HS 06/10/17 [History] Esomeprazole Magnesium [Nexium] 20 mg PO QAM 06/10/17 [History] Gabapentin [Neurontin] 200 mg PO HS 06/10/17 [History] Ibuprofen [Advil] 200 - 400 mg PO Q6H PRN 06/10/17 [History] Lisinopril [Zestril] 10 mg PO QAM 06/10/17 [History] Triamcinolone Acetonide 1 appl TP BID 06/10/17 [History] Metoprolol XL (24 HR) Succ [Toprol Xl] 100 mg PO BID #120 mg 06/12/17 [Rx] Aspirin Enteric Coated [Aspirin EC] 324 mg PO DAILY 07/15/17 [History] Atorvastatin Calcium [Lipitor] 20 mg PO HS 07/15/17 [History] 3 Allergy/AdvReac Type Severity Reaction Status Date / Time sulfamethoxazole Allergy Anaphylaxis Verified 07/15/17 17:23 [From Bactrim] trimethoprim [From Bactrim] Allergy Anaphylaxis Verified 07/15/17 17:23 codeine AdvReac Itching Verified 07/15/17 17:23 All Systems Review: A 10-system review of systems was performed and is negative for pertinent findings except as documented above in the HPI. Physical Examination Vital Signs, Last 4 Hours Temp Pulse Resp BP Pulse Ox 07/16/17 09:01 95 07/16/17 09:00 78 121/82 07/16/17 07:48 98.3 F 80 16 104/65 95 General: Conversant, No Apparent Distress HEENT: Atraumatic, Normocephaly, Mucus Membranes Moist Neck: No JVD, Normal carotid pulses Cardiac: Reg Rate and Rhythm, Normal S1 and S2, No Murmur Lungs: Normal Breath Sounds, No Wheeze, Rales, Rhonchi Neuro: Alert and responsive, No focal deficits noted Abdomen: Soft, Non-Tender Skin: No rashes noted on visualized skin Musculoskeletal: Other (Chest wall tender to palpation.) Extremities: No Clubbing, No Cyanosis, No Edema, Normal Pulses Results 07/16/17 02:56 07/16/17 02:56 Lab Results 07/16/17 07/16/17 07/16/17 00:16 02:56 02:56 WBC 6.7 Hgb 12.2 Hct 37.2 Plt Count 169 APTT Sodium 140 Potassium 3.9 Chloride 105 Carbon Dioxide 26 BUN 11 Creatinine 0.85 Glucose 108 H Calcium 8.9 Troponin I 0.00 TSH 6.556 H 07/16/17 07/16/17 02:56 06:00 WBC Hgb Hct Plt Count APTT 123.5 H* D Sodium Potassium Chloride Carbon Dioxide BUN Creatinine Glucose Calcium Troponin I 0.00 TSH - Imaging and Cardiology Echo: report reviewed - EKG Interpretation EKG results cardiology: personally reviewed (SR with newly inverted T-waves in V2-V6.) Consult Discharge Plan - Plan Referrals: Demian Cuellar MD [Primary Care Provider] - 07/23/17 2:30 pm () <Harris Guerra - Last Filed: 07/16/17 18:23> Date of Encounter: 07/16/17 Assessment and Plan Discussion w patient/family: The assessment and plan as outlined above was discussed with the patient and/or family members who expressed understanding and agreement. All questions were answered. Thank you for involving us in the care of your patient. Please call with any questions. History of Present Illness History of present illness: Ms. Uribe is a 57 year old female All Systems Review: A 10-system review of systems was performed and is negative for pertinent findings except as documented above in the HPI. Physical Examination Vital Signs, Last 4 Hours Temp Pulse Resp BP Pulse Ox 07/16/17 16:36 97.7 F 79 13 114/72 96 Results 07/16/17 02:56 07/16/17 02:56 Lab Results 07/16/17 07/16/17 07/16/17 00:16 02:56 02:56 WBC 6.7 Hgb 12.2 Hct 37.2 Plt Count 169 APTT Sodium 140 Potassium 3.9 Chloride 105 Carbon Dioxide 26 BUN 11 Creatinine 0.85 Glucose 108 H Calcium 8.9 Troponin I 0.00 TSH 6.556 H 07/16/17 07/16/17 07/16/17 02:56 06:00 10:36 WBC Hgb Hct Plt Count APTT 123.5 H* D 54.1 H D Sodium Potassium Chloride Carbon Dioxide BUN Creatinine Glucose Calcium Troponin I 0.00 TSH - Attending Attestation Pt seen and examined, chart reviewed, old records reviewed, echocardiographic findings reviewed, essentially agree with above, my evaluation as follows: CC SOB with exertion, chest tightness Pt reports increasing shortness of breath over last several days, occurs with exertion, but does occur at rest. She feels she has trouble breathing, that her chest is tight and that she cannot take a full breath. She was very sedentary after hospital discharge approx 4 weeks ago, and began increasing activity one week ago with cleaning her jew. She notes her exercise tolerance with much less now compared to eight weeks ago. She has stopped physical activity with onset of even mild shortness of breath to avoid provoking more chest pain and shortness of breath. She feels chest tightness at rest, which resolves if she is able to relax. She discussed anti anxiety meds with her primary care physician, but decided to manage her anxiety "naturally". She reports she is breathing easier after echo showed almost full recovery of myocardial function. IMP/Plan: 1. Takasubos' Cardiomyopathy - with rapidly recovering LV function, now near normal, kup from previous EF 35% with acute event. 2. Abnormal EKG - inverted T waves ant leads, new, with previous trivial CAD ( cath one month ago), normal wall motion on echocardiogram today, suspect due to lead and patient positioning rather tean acute ischemic event. 3. Anxiety, not well controlled, pt declines medical tx, reports knowing her heart is improving has decreased tightness in her chest. 4. Chest pain, musculoskeletal, improved. 5. SOB - due to deconditioning , recommend begin ten minutes gentle walking BID , record when she goes and bring diary of these walks to the office at follow up visit.
--- NOTE | 2017-07-16 10:11 | Event Note ---
<Flavio Barrow - Last Filed: 07/16/17 15:21> Date of Encounter: 07/16/17 Time of Encounter: 10:06 57 year old female evaluated at bedside. Patient complains of typical chest pain that started yesterday, worse with activity, relieved by rest. She does have history of takatsubo cardiomyopathy, diagnosed last month in May. Patient states that her chest pain does not radiate anywhere, but is substernal, located on the left side of her chest. she admits to nausea, but no vomiting, diarrhea, fever, or chills. she denies any further complaints today. Physical Exam: general: alert and oriented x3, no acute distress CV: RRR, no murmurs, rubs, or gallops. Respiratory: CTAB Extremities, no cyanosis, edema, or clubbing ABdomen: soft, non distended, non tender, positive bowel sounds. Assessment/Plan 1. chest pain: -patient was diagnosed with takatsubo cardiomyopathy last month, EF 35%, LHC showed non obstructive CAD. -echo from today showed LVEF 60-65%, prominent muscular band noted on LV apex, no evidence of LV thrombus, normal RV size and funciton, valvular function was not assessed. -per cardio, repeaat TTE was ordered in outpatient setting but nocompleted yet. -heparin gtt stopped by cardio. -new T wave inversions noted on EKG. Plan: per cardio, no further testing recommended and will follow up outpatient continue current medical management: ASA, statin, BB. -likely D/C tomorrow. 2. Takatsubo cardiomyopathy -plan as above 3. vaginal lump -will continue with outpatient follow up. 4. HTN -continue home meds. 5. DVT prophylaxis. -Heparin SQ <Arsenio Moraes - Last Filed: 07/16/17 18:18> Date of Encounter: 07/16/17 I examined this patient and my medical decision-making was reviewed with the Resident Physician. I agree with the documented findings, disposition and treatment plan as described except to the extent set forth below. in patient OBGYN consul for vaginal lump.
[2017-07-16] MEDS ORDERED: Acetaminophen 325 MG TABLET PO PRN (10:20)
[2017-07-16 11:24] LABS: Bilirubin,Urine Negative (Negative); Blood,Urine Negative (Negative); Clarity,Urine Cloudy (Clear); Color,Urine Yellow (Yellow); Glucose,Urine (UA) Normal (Normal); Ketones,Urine Negative (Negative); Leukocyte Esterase,Urine Small (Negative); Nitrite,Urine Negative (Negative); Protein,Urine Negative (Neg-Trace); Specific Gravity,Urine 1.013 (1.010-1.025); Urobilinogen,Urine Normal (Normal)
[2017-07-16 11:26] LABS: Bacteria,Urine None Seen per hpf (None-Few); Hyaline Casts,Urine None Seen per lpf (None-Few); RBC,Urine 0-3 per hpf (0-3)
[2017-07-16 11:42] LABS: Squamous Epithelial Cell,Urine Few per lpf (None-Few)
[2017-07-16 11:45] LABS: WBC,Urine 0-3 per hpf (0-3); Yeast,Urine Few per hpf (None Seen)
--- NOTE | 2017-07-16 15:26 | Electrocardiograph Report ---
[address] [place], [place] [address] Test Date: 2017-07-15 Pat Name: Diane Uribe Department: 104 Room: 2A32 Gender: F Eligibility Manager: : [id number] Requested By: Ashu Urbano Order Number: [id number] Reading MD: Damain Chapman MD Measurements Intervals [place] Rate: 78 P: 44 HI: 169 QRS: -17 QRSD: 90 T: 117 QT: 387 QTc: 421 Interpretive Statements SINUS RHYTHM ANTEROLATERAL ISCHEMIA Electronically Signed On 07-16-2017 15:24:39 EDT by Damian Chapman MD
[2017-07-16] MEDS: *HR* Heparin 5,000 UNIT/ML VIAL SQ SCH (20:26)
[2017-07-16] MEDS ORDERED: Gabapentin 100 MG CAPSULE PO SCH (21:00)
[2017-07-17] MEDS: *HR* Heparin 5,000 UNIT/ML VIAL SQ SCH (06:10)
[2017-07-17 06:17] LABS: Basophils % 0.5 %; Eosinophils # 0.3 K/mcL (0.0-0.6); Eosinophils % 4.2 %; Hematocrit 36.9 % (35.3-44.9); Hemoglobin 11.9 g/dL (11.5-15.4); Immature Granulocytes % 0.5 % (0-4); Lymphocytes % 33.3 %; Mean Corpuscular HGB Conc 32.2 g/dL (31.6-35.5); Mean Corpuscular Hemoglobin 29.3 pg (28.0-33.3); Mean Corpuscular Volume 90.9 fL (83.0-100.0); Mean Platelet Volume 9.4 fL (9.4-12.4); Monocytes # 0.6 K/mcL (0.0-1.3); Monocytes % 9.2 %; Neutrophils # 3.2 K/mcL (1.6-8.9); Nucleated Red Blood Cells 0.3 /100 WBC (0); Platelet Count 185 K/mcL (140-400); Red Blood Count 4.06 M/mcL (3.82-4.97); Segmented Neutrophils % 52.3 %
[2017-07-17 06:33] LABS: BUN/Creatinine Ratio 16 (6-26); Blood Urea Nitrogen 14 mg/dL (7-20); Calcium 9.1 mg/dL (8.6-10.8); Carbon Dioxide 26 mEq/L (19-29); Chloride 106 mEq/L (98-109); Glucose 112 mg/dL (70-99); Osmolality,Calculated 287 (280-300); Potassium 4.1 mEq/L (3.5-4.5); Sodium 138 mEq/L (136-145); eGFR For African Americans > 60 (> 60); eGFR For Non-African Americans > 60 (> 60)
[2017-07-17 08:04] VITALS: BP 139/81
--- NOTE | 2017-07-17 08:25 | OB/GYN Consult Note ---
Date of Encounter: 07/17/17 Time of Encounter: 08:21 Assessment and Plan (1) Vaginal lump Current Visit: Yes Status: Acute Pt to call for follow up in office. History of Present Illness Consult date: 07/17/17 Reason for consult: other (Labial mass) History of present illness: Debbi Skaggs CNM was called for consult on this patient. Pt was admitted for chest pain and has been subsequently cleared for discharge, during admission pt complained of vulvar pain and discomfort, a mass was noted. Consult was requested for inpatient evaluation. Disussion with Giles ROBERTS, pt being discharge. Can follow up outpatient in office next week. Past Med Surg Social Fam HX - Past Medical History Medical history: GERD, hypertension, other Psychiatric history: anxiety - Past Surgical History Surgical History: cholecystectomy, hysterectomy - Social History Smoking Status: Never smoker Smokeless Tobacco Status: No Alcohol use: none Drug use: none - Family History Mother Hx Family Cardiac Disorders: Yes ([place]) Hx Family GI Disorders: Yes (Cirrhosis) Hx Family Endocrine Disorder: Yes ([place]) Hx Family Autoimmune Disorders: Yes Medications and Allergies Cyclobenzaprine HCl 5 mg PO HS 06/10/17 [History] Esomeprazole Magnesium [Nexium] 20 mg PO QAM 06/10/17 [History] Gabapentin [Neurontin] 200 mg PO HS 06/10/17 [History] Ibuprofen [Advil] 200 - 400 mg PO Q6H PRN 06/10/17 [History] Lisinopril [Zestril] 10 mg PO QAM 06/10/17 [History] Triamcinolone Acetonide 1 appl TP BID 06/10/17 [History] Metoprolol XL (24 HR) Succ [Toprol Xl] 100 mg PO BID #120 mg 06/12/17 [Rx] Aspirin Enteric Coated [Aspirin EC] 324 mg PO DAILY 07/15/17 [History] Atorvastatin Calcium [Lipitor] 20 mg PO HS 07/15/17 [History] 3 Allergy/AdvReac Type Severity Reaction Status Date / Time sulfamethoxazole Allergy Anaphylaxis Verified 07/15/17 17:23 [From Bactrim] trimethoprim [From Bactrim] Allergy Anaphylaxis Verified 07/15/17 17:23 codeine AdvReac Itching Verified 07/15/17 17:23 Exam - Vital Signs Vital signs: Initial Vital Signs Temp Pulse Resp BP Pulse Ox 97.6 F 83 18 123/68 96 07/15/17 17:14 07/15/17 17:14 07/15/17 17:14 07/15/17 17:14 07/15/17 17:14 Results Result Diagrams: 07/17/17 05:27 07/17/17 05:27 Abnormal lab results Nucleated RBCs/100 WBC 0.3 /100 WBC (0) H 07/17/17 05:27 APTT 54.1 Seconds (26.0-36.0) H D 07/16/17 10:36 Heparin Anti-Xa, Unfract 0.71 IU/mL (0.30-0.70) H 07/16/17 02:56 Glucose 112 mg/dL (70-99) H 07/17/17 05:27 TSH 6.556 mcIU/mL (0.350-4.840) H 07/16/17 02:56 Urine Clarity Cloudy (Clear) A 07/15/17 11:12 Ur Leukocyte Esterase Small (Negative) H 07/15/17 11:12 Urine Yeast Few per hpf (None Seen) H 07/15/17 11:12 Ur Culture Indicated? YES (NO) A 07/15/17 11:12 All other labs normal. Consult Discharge Plan - Plan Referrals: Demian Cuellar MD [Primary Care Provider] - 07/23/17 2:30 pm ()
[2017-07-17] MEDS: Aspirin Enteric Coated 81 MG Tablet PO SCH (09:02)
--- NOTE | 2017-07-17 09:27 | Discharge Summary ---
<SarahFlavio - Last Filed: 07/17/17 14:49> Date of Encounter: 07/17/17 Time of Encounter: 09:25 - Discharge Diagnosis (1) ACS (acute coronary syndrome) Priority: Primary Status: Suspected (2) Takotsubo cardiomyopathy Priority: Secondary Status: Acute (3) Vaginal lump Priority: Secondary Status: Acute (4) Hypertension Priority: Secondary Status: Chronic Qualifiers: Hypertension type: essential hypertension Qualified Code(s): I10 - Essential (primary) hypertension (5) GERD (gastroesophageal reflux disease) Priority: Secondary Status: Chronic Qualifiers: Esophagitis presence: esophagitis presence not specified Qualified Code(s) : K21.9 - Gastro-esophageal reflux disease without esophagitis (6) DVT prophylaxis Priority: Secondary Status: Acute - Discharge Medications Home Medications: Cyclobenzaprine HCl 5 mg PO HS 06/10/17 [History] Esomeprazole Magnesium [Nexium] 20 mg PO QAM 06/10/17 [History] Gabapentin [Neurontin] 200 mg PO HS 06/10/17 [History] Lisinopril [Zestril] 10 mg PO QAM 06/10/17 [History] Triamcinolone Acetonide 1 appl TP BID 06/10/17 [History] Metoprolol XL (24 HR) Succ [Toprol Xl] 100 mg PO BID #120 mg 06/12/17 [Rx] Aspirin Enteric Coated [Aspirin EC] 324 mg PO DAILY 07/15/17 [History] Atorvastatin Calcium [Lipitor] 20 mg PO HS 07/15/17 [History] Allergies/Adverse Reactions: 3 Allergy/AdvReac Type Severity Reaction Status Date / Time sulfamethoxazole Allergy Anaphylaxis Verified 07/15/17 17:23 [From Bactrim] trimethoprim [From Bactrim] Allergy Anaphylaxis Verified 07/15/17 17:23 codeine AdvReac Itching Verified 07/15/17 17:23 Procedures/tests Complete & Pending: Procedures Performed prior 72 hours Category Date Time Status EV limited echo w enhance Routine Y 07/16/17 Completed Date of admission: 07/15/17 20:05 Primary care physician: Demian Cuellar MD - Patient Status Disposition: Home, Self-Care Condition: Good Functional capacity at discharge: independent ambulation Overall status at discharge: patient is progressing back to baseline - Discharge Instructions Follow Up With: Irving Ramos MD [Partnered Physician] - Patrick Fry MD [Partnered Physician] - (Left message on Page at OBGYN for patient need to have hospital follow up.. ) Demian Cuellar MD [Primary Care Provider] - 07/23/17 2:30 pm () Additional Instructions: follow up with Primary care doctor within one week of discharge follow up with cardiology follow up with dog food dough mixer please take all prior medications as prescribed return to emergency department if you develop further episodes of severe chest pain or shortness of breath. - Diet and Activity Activity: increase activity as tolerated Diet: low fat, low cholesterol Hospital course: Ms. Uribe is a 57 year old female GERD, HTN, prior hx of Takotsubo cardiomyopathy diagnosed last month, fibromyalgia, psoriasis. patient arrived to [facility] on 07/15/17 with CC of typical chest pain with new diffuse t wave inversions present on EKG compared to prior EKG. Of note, she was hospitalized in may 2017 and diagnosed with Takotsubo cardiomyopathy- LHC on 06/12/17 showed LVEF 35% with mild non obstructive CAD. she was placed on heparin gtt and cardiology was consulted for further recommendations. repeat echo showed improvement from prior: LVEF 60-65%, prominent muscular band noted in LV apex, no evidence of LV thrombus, normal RV size and function. Cardiology had recommended continued medical management on her current home med regimen. No further invasive testing was recommended at that time. Patient had discussed treatment with benzodiazepines for her severe anxiety with her PCP, but declined this option. She is now considering starting a low dose benzodiazepine , and was told to discuss this more with her PCP after discharge. During her hospitalization, patient complained of a "lump" in her vagina that was causing her pain. dog food dough mixer was consulted for further recommendations and possible biopsy, as there is concern for malignancy in her age group. When OB/ Ankle Patch Molder was consulted, spoke with Debbi Skaggs CNM at [facility] food dough mixer office. They stated an inpatient consult was not needed, and that patient may follow up in office early next week for further management. Appointment will be made upon discharge. Patient was stable throughout the course of her hospital stay and remained stable upon discharge. follow up with Primary care doctor within one week of discharge follow up with cardiology follow up with dog food dough mixer please take all prior medications as prescribed return to emergency department if you develop further episodes of severe chest pain or shortness of breath. - Time Spent with Patient Total time spent providing and/or coordinating discharge services: - Constitutional Vitals: Temp Pulse Resp BP Pulse Ox 97.8 F 85 17 139/81 97 07/17/17 08:03 07/17/17 08:03 07/17/17 08:03 07/17/17 08:03 07/17/17 08:03 General appearance: Present: A&O X 3, no acute distress, answers questions appropriately - Head Head exam: Present: atraumatic, normocephalic - Neck Neck exam general surgery: Present: supple, trachea midline - Respiratory Respiratory exam: Present: CTAB - Cardiovascular Cardiovascular exam: Present: RRR, +S1, +S2 - GI/Abdominal GI/Abdominal exam: Present: normal bowel sounds, soft. Absent: distended, tenderness - Additional comments: about 2cmx.5cm macular flat lesion present on inner part of left labia minora that patient says is tender to palpation. - Extremities Exam Extremities exam: Absent: cyanotic, pedal edema - Back Exam Back exam: Absent: CVA tenderness (L), CVA tenderness (R) - Neurological Exam Neurological exam: Present: alert, oriented X3, no focal deficits - Psychiatric Psychiatric exam: Present: normal affect, normal mood - Skin Skin exam: Present: intact - VTE Reasons for not Prescribing Prophylaxis: Not indicated-Anticoagulated or INR therapeutic <Arsenio Moraes P - Last Filed: 07/17/17 20:20> Date of Encounter: 07/17/17 Procedures/tests Complete & Pending: Procedures Performed prior 72 hours Category Date Time Status EV limited echo w enhance Routine Y 07/16/17 Completed Date of admission: 07/15/17 20:05 Primary care physician: Demian Cuellar MD Hospital course: Ms. Uribe is a 57 year old female - Time Spent with Patient Total time spent providing and/or coordinating discharge services: - Constitutional Vitals: Temp Pulse Resp BP Pulse Ox 97.8 F 85 17 139/81 97 07/17/17 08:03 07/17/17 08:03 07/17/17 08:03 07/17/17 08:03 07/17/17 08:03 - Attending Attestation I examined this patient and my medical decision-making was reviewed with the Resident Physician. I agree with the documented findings, disposition and treatment plan as described except to the extent set forth below.
== END 2017-07-17 11:19 | disposition home or self-care (01) ==
LOC: 2ANU 17:12 → EMEROO 17:12 → 2ANU 21:26
PROVIDERS: ADMIT Internal Medicine; ATTEND Internal Medicine

== ENCOUNTER 2019-04-23 10:15 | Observation (INO) ==
--- NOTE | 2019-04-23 10:41 | Emergency Department Note ---
Disposition Clinical Impression: Atypical chest pain Disposition: Admitted As Inpatient Condition: Good Time of Disposition: 12:40 Chest Pain HPI - General Chief Complaint: ED Chest Pain Stated Complaint: Chest issues Time Seen by Provider: 04/23/19 10:25 Source: patient Limitations: no limitations Vital Signs Reviewed: Yes Nursing Notes Reviewed: Yes - History of Present Illness HPI Narrative: Ms. Uribe is a 58 year old female with history of htn, gerd, PVD, CAD, takotsubo cardiomyopathy, hld, intracranial anurysm, and anxiety who presents to the ED with complaint of chest pressure and pain that reached maximal intensity last evening. For the past two years since Takotsubo diagnosis the patient has had intermittent chest pressure worse with exertion. Patient reports that last night she was hot and sweaty and sitting in the living room when she developed a sharp shooting pain over her left chest and some radiation to her back that lasted a couple seconds before continuing as a chest pressure over her left side of her chest with some radiation to her back. Patient reports before feeling the sharp shooting pain she was developing some chest pressure and shortness of breath. She has had some nausea since. Reports she took some antacids and it helped only minimally and today she has continued to have some chest pressure over her left side that she wanted checked out. Patient reports over last 3-4 days she has also had some increased leg swelling, but she took her water pill and it has helped and the swelling has not returned yet. Denies fevers, chills, changes in vision or hearing, weakness, headaches, cough, productive cough, abdominal pain, changes in bowels, diarrhea, changes in urination, dysuria, hematuria, weakness, loss of sensation, or rash. Severity scale (1-10): 4 - Related Data Home Medications Medication Instructions Recorded Confirmed Lisinopril [Zestril] 10 mg PO QAM 06/10/17 04/23/19 Triamcinolone Acetonide 1 appl TP BID PRN 06/10/17 04/23/19 Aspirin Enteric Coated [Aspirin EC] 324 mg PO DAILY PRN 07/15/17 04/23/19 Esomeprazole Magnesium [Nexium] 40 mg PO DAILY 04/23/19 04/23/19 Furosemide [Lasix] 20 mg PO DAILY PRN 04/23/19 04/23/19 LORazepam [Ativan] 0.5 mg PO BID 04/23/19 04/23/19 Metoprolol Succinate [Toprol Xl] 100 mg PO BID 04/23/19 04/23/19 Allergies Allergy/AdvReac Type Severity Reaction Status Date / Time sulfamethoxazole Allergy Anaphylaxis Verified 06/25/18 08:38 [From Bactrim] trimethoprim [From Bactrim] Allergy Anaphylaxis Verified 06/25/18 08:38 codeine AdvReac Itching Verified 06/25/18 08:38 Review of Systems: As Per HPI Chest Pain PMH - Past Medical History Medical history: Reports: arthritis, cardiomyopathy, GERD, hypertension, myocardial infarction, other Surgical history: Reports: cholecystectomy, hysterectomy Psychiatric history: Reports: anxiety [employer]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 Absent: tenderness, lymphadenopathy - Chest Chest inspection: Present: normal inspection, symmetric chest wall rise. Absent: tenderness - Respiratory Respiratory exam: Present: normal lung sounds bilaterally. Absent: wheezes, accessory muscle use - Cardiovascular Cardiovascular exam: Present: regular rate, normal rhythm, normal heart sounds - Abdominal Exam Abdominal exam: Present: soft, Non-Tender, normal bowel sounds. Absent: tenderness, guarding, rigidity - Extremities Exam Extremities exam: Present: normal inspection, full ROM, normal capillary refill. Absent: tenderness, pedal edema, calf tenderness - Back Exam Back exam: Present: normal inspection, full ROM. Absent: tenderness, CVA tenderness (R), CVA tenderness (L) - Neurological Exam Neurological exam: Present: alert, oriented X3, normal gait, reflexes normal - Psychiatric Psychiatric exam: Present: normal affect, normal mood - Skin Skin exam: Present: warm, dry, intact, normal color. Absent: rash, diaphoresis, erythema Course Vital Signs Temperature 97.6 F 04/23/19 10:20 Pulse Rate 83 04/23/19 10:20 Respiratory Rate 16 04/23/19 10:20 Blood Pressure 129/80 04/23/19 10:20 O2 Sat by Pulse Oximetry 96 04/23/19 10:20 Temperature 97.6 F 04/23/19 10:28 Pulse Rate 64 04/23/19 12:18 Respiratory Rate 15 04/23/19 12:18 Blood Pressure 126/57 04/23/19 12:18 O2 Sat by Pulse Oximetry 97 04/23/19 12:18 Oxygen Delivery Oxygen Delivery Room Air Chest Pain - MDM Narrative Medical decision making narrative: 58 year old with significant CV history who presents with complaint of chest pain and pressure that reached maximal intensity last evening and has improved but continued to be present through this morning. Ddx including but not limited to ACS, PE, progression of cardiomyopathy, gerd, pneuomnia, bronchitis. Will obtain labs, imaging, and ekg. At this time, will administer gi cocktail as has some heartburn history. Patient refused Gi cocktail, order cancelled 1111a Labs and imaging unremarkable. Troponin < 0.03. Discuss results with patient 1125a Spoke with hospitalist and patient, admit for chest pain. 1238p - Medical Records Medical records reviewed: Yes I reviewed the patient's medical records. ecw records - Lab Data Lab results reviewed: Yes I reviewed the patient's lab results. Lab results narrative: Laboratory Last Values WBC 5.4 K/mcL (4.3-11.1) 04/23/19 10:49 RBC 4.33 M/mcL (3.82-4.97) 04/23/19 10:49 Hgb 12.7 g/dL (11.5-15.4) 04/23/19 10:49 Hct 38.6 % (35.3-44.9) 04/23/19 10:49 MCV 89.1 fL (83.0-100.0) 04/23/19 10:49 MCH 29.3 pg (28.0-33.3) 04/23/19 10:49 MCHC 32.9 g/dL (31.6-35.5) 04/23/19 10:49 RDW 12.7 % (11.5-14.5) 04/23/19 10:49 Plt Count 202 K/mcL (140-400) 04/23/19 10:49 MPV 9.1 fL (9.4-12.4) L 04/23/19 10:49 Immature Gran % 0.2 % (0-4) 04/23/19 10:49 Seg Neutrophils % 53.7 % 04/23/19 10:49 33.8 % 04/23/19 10:49 9.5 % 04/23/19 10:49 2.4 % 04/23/19 10:49 0.4 % 04/23/19 10:49 2.9 K/mcL (1.6-8.9) 04/23/19 10:49 1.8 K/mcL (0.6-4.6) 04/23/19 10:49 0.5 K/mcL (0.0-1.3) 04/23/19 10:49 0.1 K/mcL (0.0-0.6) 04/23/19 10:49 0.0 K/mcL (0.0-0.2) 04/23/19 10:49 PT 11.5 Seconds (9.4-12.1) 04/23/19 10:49 INR 1.0 04/23/19 10:49 APTT 29.5 Seconds (26.0-36.0) 04/23/19 10:49 Sodium 137 mEq/L (136-145) 04/23/19 10:49 Potassium 3.8 mEq/L (3.5-5.1) 04/23/19 10:49 Chloride 104 mEq/L (98-107) 04/23/19 10:49 Carbon Dioxide 25 mEq/L (23-29) 04/23/19 10:49 BUN 18 mg/dL (8-23) 04/23/19 10:49 0.85 mg/dL (0.60-1.20) 04/23/19 10:49 Est GFR ( Amer) > 60 (> 60) 04/23/19 10:49 Est GFR (Non-Af Amer) > 60 (> 60) 04/23/19 10:49 21 (6-26) 04/23/19 10:49 Glucose 171 mg/dL (70-105) H 04/23/19 10:49 290 (280-300) 04/23/19 10:49 Calcium 9.0 mg/dL (8.6-10.3) 04/23/19 10:49 < 0.03 ng/mL (< 0.04) 04/23/19 10:49 Result diagrams: 04/23/19 10:49 04/23/19 10:49 Lab Results 04/23/19 04/23/19 04/23/19 Range/Units 10:49 10:49 10:49 WBC 5.4 (4.3-11.1) K/mcL RBC 4.33 (3.82-4.97) M/mcL Hgb 12.7 (11.5-15.4) g/dL Hct 38.6 (35.3-44.9) % MCV 89.1 (83.0-100.0) fL MCH 29.3 (28.0-33.3) pg MCHC 32.9 (31.6-35.5) g/dL RDW 12.7 (11.5-14.5) % Plt Count 202 (140-400) K/mcL MPV 9.1 L (9.4-12.4) fL Immature Gran % 0.2 (0-4) % Seg Neutrophils % 53.7 % Lymphocytes % 33.8 % Monocytes % 9.5 % Eosinophils % 2.4 % Basophils % 0.4 % Neutrophils # 2.9 (1.6-8.9) K/mcL Lymphocytes # 1.8 (0.6-4.6) K/mcL Monocytes # 0.5 (0.0-1.3) K/mcL Eosinophils # 0.1 (0.0-0.6) K/mcL Basophils # 0.0 (0.0-0.2) K/mcL PT 11.5 (9.4-12.1) Seconds INR 1.0 APTT 29.5 (26.0-36.0) Seconds Sodium 137 (136-145) mEq/L Potassium 3.8 (3.5-5.1) mEq/L Chloride 104 (98-107) mEq/L Carbon Dioxide 25 (23-29) mEq/L BUN 18 (8-23) mg/dL Creatinine 0.85 (0.60-1.20) mg/dL Est GFR ( Amer) > 60 (> 60) Est GFR (Non-Af Amer) > 60 (> 60) BUN/Creatinine Ratio 21 (6-26) Glucose 171 H (70-105) mg/dL Calculated Osmolality 290 (280-300) Calcium 9.0 (8.6-10.3) mg/dL Troponin I < 0.03 (< 0.04) ng/mL - Radiology Data Radiology results reviewed: Yes I reviewed the patient's radiology results. Chest X-Ray 04/23/19 10:27 IMPRESSION: No acute cardiopulmonary process. D/ / 04/23/2019 11:04:20 Neri Chow MD / marcos Interpreting Provider: Neri Chow MD - EKG Data EKG attestation: Yes I reviewed and interpreted this EKG. EKG shows normal: sinus rhythm Rate: normal Rhythm: NSR [place]/QRS: normal (poor r wave progression) T wave inversions noted in: v1, v2 When compared to previous EKG there are: no significant changes Interpretation: no acute changes, nonspecific ST-T wave changes Attestation Statement - Attestation Attestation: I, Alvin Pike, examined this patient and my medical decision-making was reviewed with the RESEARCH ANIMAL FACILITY SUPERVISOR/PA/Advanced Practice Nurse/Resident Physician. I agree with the documented findings, disposition and treatment plan as described except to the extent set forth below. 58-year-old female presents emergency Department after concerns of acute onset chest pain. Patient has a history of Takasubo cardiomyopathy which resulted in a negative left heart catheter. Patient did not receive stenting at that time. Patient denies fever, chills, nausea, vomiting, diarrhea. Patient reports that her pain is described as a pressure that does not radiate. Patient reports that her main goal for coming in today was to obtain troponins to evaluate for "cardiac damage" I explained that one troponin is sufficient to rule out cardiac disease. Patient was comfortable with plan for admission to the hospital for further care and evaluation. Initial troponin did not show evidence of STEMI.
[2019-04-23] MEDS ORDERED: GI Cocktail 40 ML EACH PO ONE (10:50)
[2019-04-23 11:02] LABS: Basophils % 0.4 %; Eosinophils # 0.1 K/mcL (0.0-0.6); Eosinophils % 2.4 %; Hematocrit 38.6 % (35.3-44.9); Hemoglobin 12.7 g/dL (11.5-15.4); Immature Granulocytes % 0.2 % (0-4); Lymphocytes # 1.8 K/mcL (0.6-4.6); Lymphocytes % 33.8 %; Mean Corpuscular HGB Conc 32.9 g/dL (31.6-35.5); Mean Corpuscular Hemoglobin 29.3 pg (28.0-33.3); Mean Corpuscular Volume 89.1 fL (83.0-100.0); Mean Platelet Volume 9.1 fL (9.4-12.4); Monocytes # 0.5 K/mcL (0.0-1.3); Monocytes % 9.5 %; Neutrophils # 2.9 K/mcL (1.6-8.9); Platelet Count 202 K/mcL (140-400); Red Blood Count 4.33 M/mcL (3.82-4.97); Red Cell Distribution Width 12.7 % (11.5-14.5); Segmented Neutrophils % 53.7 %
[2019-04-23 11:09] LABS: Prothrombin Time 11.5 Seconds (9.4-12.1)
[2019-04-23 11:12] LABS: Activated Partial Thrombo Time 29.5 Seconds (26.0-36.0)
[2019-04-23 11:21] LABS: BUN/Creatinine Ratio 21 (6-26); Blood Urea Nitrogen 18 mg/dL (8-23); Carbon Dioxide 25 mEq/L (23-29); Chloride 104 mEq/L (98-107); Glucose 171 mg/dL (70-105); Osmolality,Calculated 290 (280-300); Potassium 3.8 mEq/L (3.5-5.1); Sodium 137 mEq/L (136-145); Troponin I < 0.03 ng/mL (< 0.04); eGFR For Non-African Americans > 60 (> 60)
--- NOTE | 2019-04-23 12:41 | Internal Med History&Physical ---
Date of Encounter: 04/23/19 Time of Encounter: 13:00 Internal Medicine - H&P: HPI Chief complaint: CP History of present illness: Ms. Uribe is a 58 year old female with history of htn, gerd, PVD, CAD, takotsubo cardiomyopathy, hld, intracranial anurysm, and anxiety who presents to the ED with complaint of intermittent chest pressure, sharp in character, radiating to her back, associated with shortness of breath as well as feeling hot and sweaty she stated that the patient's pain started last night and progressively worsened over time. The patient also reported progressive worsening of lower extremity edema that improved when she took her home diuretics. The patient has history of takotsubo cardiomyopathy was diagnosed in 2017 had reported ejection fraction was about 35% of the time, she follow with [facility] cardiology group. The patient was very anxious she requested to see Dr. Franks. I spoke with Dr. Andrew caradiologlucio air intercept controller, and they will see the patient on consult. The patient cardiac enzymes first set were with no significant abnormalities, and her EKG was no significant ST-T wave changes. She will be admitted for further evaluation and management. Past Med Surg Social Fam HX - Past Medical History Medical history: arthritis, cardiomyopathy, GERD, hypertension, myocardial infarction, other Additional medical history: aneurysm in brain Psychiatric history: anxiety - Past Surgical History Surgical History: cholecystectomy, hysterectomy Additional surgical history: [facility] 06/12/17. heart cath - skin biopsy. bladder tuck. dental surgery - Social History Smoking Status: Never smoker Smokeless Tobacco Status: No Alcohol use: none Drug use: none - Family History Mother Hx Family Cardiac Disorders: Yes (PR) Hx Family GI Disorders: Yes (Cirrhosis) Hx Family Endocrine Disorder: Yes (DM) Hx Family Autoimmune Disorders: Yes Internal Medicine - H&P: Meds Lisinopril [Zestril] 10 mg PO QAM 06/10/17 [History] Triamcinolone Acetonide 1 appl TP BID PRN 06/10/17 [History] Aspirin Enteric Coated [Aspirin EC] 324 mg PO DAILY PRN 07/15/17 [History] Esomeprazole Magnesium [Nexium] 40 mg PO DAILY 04/23/19 [History] Furosemide [Lasix] 20 mg PO DAILY PRN 04/23/19 [History] LORazepam [Ativan] 0.5 mg PO BID 04/23/19 [History] Metoprolol Succinate [Toprol Xl] 100 mg PO BID 04/23/19 [History] Allergy/AdvReac Type Severity Reaction Status Date / Time sulfamethoxazole Allergy Anaphylaxis Verified 06/25/18 08:38 [From Bactrim] trimethoprim [From Bactrim] Allergy Anaphylaxis Verified 06/25/18 08:38 codeine AdvReac Itching Verified 06/25/18 08:38 All Systems PM: A 10-system review of systems was performed and is negative for pertinent findings except as documented above in the HPI. - Constitutional Vitals: Temp Pulse Resp BP Pulse Ox 97.6 F 64 15 126/57 97 04/23/19 10:28 04/23/19 12:18 04/23/19 12:18 04/23/19 12:18 04/23/19 12:18 General appearance: Present: A&O X 3 Exam: As below - Head Head exam: Present: atraumatic, normocephalic - Eye Eye exam: Present: PERRL, conjuntiva pink, sclera anicteric Pupils: Present: PERRL - Neck Neck exam general surgery: Present: supple, trachea midline. Absent: lymphadenopathy - Respiratory Respiratory exam: Present: CTAB. Absent: accessory muscle use, rales, rhonchi, wheezes - Cardiovascular Cardiovascular exam: Present: RRR, +S1, +S2. Absent: diastolic murmur, gallop, rubs, systolic murmur - GI/Abdominal GI/Abdominal exam: Present: normal bowel sounds, soft, no peritoneal signs. Absent: distended, tenderness - Extremities Exam Extremities exam: Present: pedal edema, warm, radial pulses palpable and symmetrical. Absent: calf tenderness, cyanotic - Neurological Exam Neurological exam: Present: CN II-XII intact, oriented X3, no focal deficits. Absent: pronater drift, facial droop, speech deficit - Skin Skin exam: Present: dry, intact Internal Med - H&P Results - Labs CBC & Chem 7: 04/24/19 03:21 04/24/19 03:21 Labs: Short CBC 04/23/19 Range/Units 10:49 WBC 5.4 (4.3-11.1) K/mcL Hgb 12.7 (11.5-15.4) g/dL Hct 38.6 (35.3-44.9) % Plt Count 202 (140-400) K/mcL Neutrophils # 2.9 (1.6-8.9) K/mcL BMP 04/23/19 10:49 Sodium 137 Potassium 3.8 Chloride 104 Carbon Dioxide 25 BUN 18 Creatinine 0.85 Glucose 171 H Calcium 9.0 Cardiac Enzymes 04/23/19 Range/Units 10:49 Troponin I < 0.03 (< 0.04) ng/mL - Impressions ITS Impressions Chest X-Ray 04/23/19 10:27 IMPRESSION: No acute cardiopulmonary process. D/ / 04/23/2019 11:04:20 Neri Chow MD / marcos Interpreting Provider: Neri Chow MD - Assessment and Plan (1) Chest pain Current Visit: No Status: Resolved Assessment and plan: Chest pain associated with SOB and diaphoresis, R/O CAD PLAN: - cardiac enzymes x 2 q 8 hr - EKG now and in AM - ASA - O2 by NC to keep SpO2 greater than 92% - UA - CBCD, BMP in AM - Fasting lipids - Morphine 2 mg IV q 2-4 hr PRN chest pain - Tylenol 650 mg PO q 4-6 hr PRN headache - Heparin 5000 U SQ BID for DVT prophylaxis - 2D Echo - Cardiology consult Qualifiers: Chest pain type: unspecified Qualified Code(s): R07.9 - Chest pain, unspecified (2) Takotsubo cardiomyopathy Current Visit: No Status: Acute Assessment and plan: The patient has a reported ejection fraction of 35%, we will obtain TD echo. Cardiology was consulted (3) Hypertension Current Visit: No Status: Chronic Assessment and plan: We will start antihypertensive home meds. Qualifiers: Hypertension type: essential hypertension Qualified Code(s): I10 - Essential (primary) hypertension (4) Emotional instability (excessive) Current Visit: No Status: Chronic Assessment and plan: We will continue home meds. (5) GERD (gastroesophageal reflux disease) Current Visit: No Status: Chronic Assessment and plan: We will continue home omeprazole Qualifiers: Esophagitis presence: esophagitis presence not specified Qualified Code(s): K21.9 - Gastro-esophageal reflux disease without esophagitis (6) DVT prophylaxis Current Visit: No Status: Acute Assessment and plan: We will star SCDs - Time Spent With Patient Total time spent is greater than 50% in coordination of care (as documented) at patient's floor/unit and/or counseling patient:
[2019-04-23] MEDS ORDERED: Mag Hydrox/Al Hydrox/Simeth 30 ML UDC PO PRN (15:26)
[2019-04-23] MEDS ORDERED: Ondansetron 4 MG/2 ML VIAL IVP PRN (15:26)
[2019-04-23] MEDS ORDERED: Naloxone 0.4 MG/ML INJ IVP PRN (15:26)
[2019-04-23] MEDS ORDERED: Acetaminophen 325 MG TABLET PO PRN (15:26)
[2019-04-23] MEDS ORDERED: Nitroglycerin 0.4 MG TAB.SUBL SL SCH (15:30)
[2019-04-23] MEDS ORDERED: Nitroglycerin 0.4 MG TAB.SUBL SL PRN (16:00)
--- NOTE | 2019-04-23 19:36 | Electrocardiograph Report ---
[facility] [employer] Test Date: 2019-04-23 Pat Name: Diane Uribe Department: EXAM11 Room: 3B32 Gender: F Design And Sales Consultant: : [id number] Requested By: Alvin Pike Order Number: [id number] Reading MD: Angel Brown Measurements Intervals Oral Rate: 76 P: 28 MO: 183 QRS: -6 QRSD: 101 T: 32 QT: 373 QTc: 420 Interpretive Statements Sinus rhythm Low voltage, precordial leads Borderline T abnormalities, anterior leads Electronically Signed On 04-23-2019 19:35:18 EDT by Angel Brown
[2019-04-23] MEDS: *HR* LORazepam 0.5 MG TABLET PO SCH (22:17)
[2019-04-24 03:46] LABS: Basophils % 0.3 %; Eosinophils # 0.2 K/mcL (0.0-0.6); Eosinophils % 3.3 %; Hematocrit 36.9 % (35.3-44.9); Immature Granulocytes % 0.2 % (0-4); Lymphocytes # 2.2 K/mcL (0.6-4.6); Lymphocytes % 37.3 %; Mean Corpuscular HGB Conc 32.5 g/dL (31.6-35.5); Mean Corpuscular Volume 89.1 fL (83.0-100.0); Mean Platelet Volume 9.3 fL (9.4-12.4); Monocytes # 0.7 K/mcL (0.0-1.3); Monocytes % 11.3 %; Neutrophils # 2.8 K/mcL (1.6-8.9); Platelet Count 176 K/mcL (140-400); Red Blood Count 4.14 M/mcL (3.82-4.97); Red Cell Distribution Width 12.7 % (11.5-14.5); Segmented Neutrophils % 47.6 %
[2019-04-24 03:57] LABS: Prothrombin Time 11.6 Seconds (9.4-12.1)
[2019-04-24 03:58] LABS: Alanine Aminotransferase 22 Units/L (7-52); Albumin 3.6 g/dL (3.5-5.7); Albumin/Globulin Ratio 1.2 (1.1-2.2); Alkaline Phosphatase 58 Units/L (34-104); Aspartate Amino Transferase 22 Units/L (13-39); BUN/Creatinine Ratio 20 (6-26); Bilirubin,Total 0.9 mg/dL (0.3-1.0); Blood Urea Nitrogen 16 mg/dL (8-23); Calcium 8.8 mg/dL (8.6-10.3); Carbon Dioxide 27 mEq/L (23-29); Chloride 106 mEq/L (98-107); Chol/HDL Ratio 5.2 (0-4.9); Cholesterol 145 mg/dL (< 200); Globulin 3.1 g/dL (2.4-3.5); Glucose 137 mg/dL (70-105); HDL Cholesterol 28 mg/dL (40-59); LDL Cholesterol,Calculated 57 mg/dL (0-99); Magnesium 2.1 mg/dL (1.6-2.6); Osmolality,Calculated 279 (280-300); Phosphorous 4.1 mg/dL (2.7-4.5); Potassium 3.8 mEq/L (3.5-5.1); Sodium 133 mEq/L (136-145); Total Protein 6.7 g/dL (6.4-8.9); Triglycerides 300 mg/dL (< 150); eGFR For Non-African Americans > 60 (> 60)
[2019-04-24 03:59] LABS: Activated Partial Thrombo Time 28.9 Seconds (26.0-36.0)
[2019-04-24] MEDS ORDERED: Regadenoson 0.4 MG/5 ML SYRINGE IVP ONE (08:39)
[2019-04-24] MEDS ORDERED: Metoprolol XL (24 HR) Succ 50 MG TAB.ER.24H PO SCH (09:00)
[2019-04-24] MEDS ORDERED: Aspirin 81 MG TAB.CHEW PO SCH (09:00)
--- NOTE | 2019-04-24 09:42 | Event Note ---
Date of Encounter: 04/24/19 Time of Encounter: 09:40 - Cardiology Event Note Trops negative x 4, echo pending. ST postponed today d/t eating and caffeine intake. Patient prefers to f/u with her primary department specialist next week assuming echo ok. Discussed with primary service, will arrange outpatient f/u, consult if any concerns on echo. Patient verbalized understanding and agreed to plan.
[2019-04-24] MEDS ORDERED: Perflutren Lipid Microsphere 1.3 ML in 0.9 % Sodium Chloride 8.7 ML IVP ONE (09:48)
[2019-04-24] MEDS: *HR* LORazepam 0.5 MG TABLET PO SCH (11:04)
[2019-04-24 12:22] VITALS: BP 123/77
--- NOTE | 2019-04-24 12:39 | Discharge Summary ---
Date of Encounter: 04/24/19 Time of Encounter: 12:00 - Discharge Diagnosis (1) Chest pain Priority: Primary Status: Resolved Assessment and Plan: 58 year old female with history of htn, gerd, PVD, CAD, takotsubo cardiomyopathy, hld, intracranial anurysm, and anxiety who presents to the ED with complaint of intermittent chest pressure, sharp in character, radiating to her back, associated with shortness of breath as well as feeling hot and sweaty she stated that the patient's pain started last night and progressively worsened over time. She was assessed with chest pain r/o ACS. She had 3 negative sets of a troponins and a normal 2D echo. She opted to complete a stress test as an outpatient. She was discharged in a stable condition Qualifiers: Chest pain type: unspecified Qualified Code(s): R07.9 - Chest pain, unspecified (2) Hypertension Priority: Primary Status: Chronic Assessment and Plan: We will start antihypertensive home meds. Qualifiers: Hypertension type: essential hypertension Qualified Code(s): I10 - Essential (primary) hypertension (3) Emotional instability (excessive) Priority: Primary Status: Chronic (4) Takotsubo cardiomyopathy Priority: Primary Status: Acute (5) GERD (gastroesophageal reflux disease) Priority: Primary Status: Chronic Qualifiers: Esophagitis presence: esophagitis presence not specified Qualified Code(s): K21.9 - Gastro-esophageal reflux disease without esophagitis (6) DVT prophylaxis Priority: Primary Status: Acute Hospital course: Ms. Uribe is a 58 year old female - Time Spent with Patient Total time spent providing and/or coordinating discharge services: - Discharge Medications Prescriptions: Continued Lisinopril [Zestril] 10 mg PO QAM Triamcinolone Acetonide 1 appl TP BID PRN PRN Reason: Skin Irritation Aspirin Enteric Coated [Aspirin EC] 324 mg PO DAILY PRN PRN Reason: CHEST PAIN/PAIN LORazepam [Ativan] 0.5 mg PO BID Furosemide [Lasix] 20 mg PO DAILY PRN PRN Reason: SWELLING Metoprolol Succinate [Toprol Xl] 100 mg PO BID Esomeprazole Magnesium [Nexium] 40 mg PO DAILY Home Medications: Lisinopril [Zestril] 10 mg PO QAM 06/10/17 [History] Triamcinolone Acetonide 1 appl TP BID PRN 06/10/17 [History] Aspirin Enteric Coated [Aspirin EC] 324 mg PO DAILY PRN 07/15/17 [History] Esomeprazole Magnesium [Nexium] 40 mg PO DAILY 04/23/19 [History] Furosemide [Lasix] 20 mg PO DAILY PRN 04/23/19 [History] LORazepam [Ativan] 0.5 mg PO BID 04/23/19 [History] Metoprolol Succinate [Toprol Xl] 100 mg PO BID 04/23/19 [History] Allergies/Adverse Reactions: Allergy/AdvReac Type Severity Reaction Status Date / Time sulfamethoxazole Allergy Anaphylaxis Verified 06/25/18 08:38 [From Bactrim] trimethoprim [From Bactrim] Allergy Anaphylaxis Verified 06/25/18 08:38 codeine AdvReac Itching Verified 06/25/18 08:38 Date of admission: 04/23/19 13:00 Primary care physician: Demian Cuellar MD Consults: 04/23/19 13:40 Consult to Cardiology [CONS] Routine Comment: Consulting Provider: Cardiology [facility] Reason for Consult: [place] the [place] takotsubo cardiomyopathy Time Notified: 12:00 Call Completed: Yes - Constitutional Vitals: Temp Pulse Resp BP Pulse Ox 98.1 F 71 15 123/77 95 04/24/19 12:19 04/24/19 12:19 04/24/19 12:19 04/24/19 12:19 04/24/19 12:19 General appearance: Present: A&O X 3 Exam: NAD - Head Head exam: Present: atraumatic, normocephalic - Eye Eye exam: Present: PERRL, conjuntiva pink, sclera anicteric Pupils: Present: PERRL - Neck Neck exam general surgery: Present: supple, trachea midline. Absent: lymphadenopathy - Respiratory Respiratory exam: Present: CTAB. Absent: accessory muscle use, rales, rhonchi, wheezes - Cardiovascular Cardiovascular exam: Present: RRR, +S1, +S2. Absent: diastolic murmur, gallop, rubs, systolic murmur - GI/Abdominal GI/Abdominal exam: Present: normal bowel sounds, soft, no peritoneal signs. Absent: distended, tenderness - Extremities Exam Extremities exam: Present: warm, radial pulses palpable and symmetrical. Absent: calf tenderness, cyanotic, pedal edema - Neurological Exam Neurological exam: Present: CN II-XII intact, oriented X3, no focal deficits. Absent: pronater drift, facial droop, speech deficit - Skin Skin exam: Present: dry, intact - Patient Status Disposition: Home, Self-Care Condition: Good - Discharge Instructions Follow Up With: Demian Cuellar MD [Primary Care Provider] -
== END 2019-04-24 16:07 | disposition home or self-care (01) ==
LOC: 3BNU 10:15 → EMEROOARM 10:15 → 3BNU 13:42
PROVIDERS: ADMIT Internal Medicine Nephrology; ATTEND Internal Medicine Nephrology

== ENCOUNTER 2020-06-07 15:47 | Observation (INO) ==
[2020-06-07 16:24] LABS: Basophils % 0.3 %; Eosinophils # 0.1 K/mcL (0.0-0.6); Eosinophils % 2.1 %; Hematocrit 38.8 % (35.3-44.9); Hemoglobin 12.3 g/dL (11.5-15.4); Immature Granulocytes % 0.2 % (0-4); Lymphocytes # 2.1 K/mcL (0.6-4.6); Lymphocytes % 31.1 %; Mean Corpuscular HGB Conc 31.7 g/dL (31.6-35.5); Mean Corpuscular Hemoglobin 28.5 pg (28.0-33.3); Mean Platelet Volume 9.2 fL (9.4-12.4); Monocytes # 0.7 K/mcL (0.0-1.3); Monocytes % 10.2 %; Neutrophils # 3.7 K/mcL (1.6-8.9); Platelet Count 202 K/mcL (140-400); Red Blood Count 4.31 M/mcL (3.82-4.97); Segmented Neutrophils % 56.1 %; White Blood Count 6.6 K/mcL (4.3-11.1)
[2020-06-07 16:58] LABS: BUN/Creatinine Ratio 19 (6-26); Blood Urea Nitrogen 19 mg/dL (8-23); Calcium 8.8 mg/dL (8.6-10.3); Carbon Dioxide 22 mEq/L (23-29); Chloride 106 mEq/L (98-107); Glucose 126 mg/dL (70-105); Osmolality,Calculated 290 (280-300); Potassium 3.6 mEq/L (3.5-5.1); Sodium 138 mEq/L (136-145); Troponin I < 0.03 ng/mL (< 0.04); eGFR For African Americans > 60 (> 60); eGFR For Non-African Americans 57 (> 60)
[2020-06-07] MEDS ORDERED: Aspirin 325 MG TABLET PO ONE (17:01)
[2020-06-07] MEDS ORDERED: Naloxone 0.4 MG/ML INJ IVP PRN (18:45)
[2020-06-07] MEDS ORDERED: Dextrose Gel 15 GM/37.5 ML TUBE PO PRN ×2 (18:46)
[2020-06-07] MEDS ORDERED: *HR* Dextrose 50 % in Water (Vial) 50 ML VIAL IVP PRN (18:46)
[2020-06-07] MEDS ORDERED: D5% in Water 1,000 ML IVC PRN (18:46)
[2020-06-07] MEDS ORDERED: Furosemide 20 MG TABLET PO PRN (18:47)
[2020-06-07] MEDS ORDERED: Triamcinolone Acet 0.1% CRM 15 GM TUBE TP PRN (18:47)
[2020-06-07] MEDS ORDERED: Nitroglycerin 0.4 MG TAB.SUBL SL SCH (19:00)
[2020-06-07] MEDS: Metoprolol XL (24 HR) Succ 50 MG TAB.ER.24H PO SCH (21:01)
[2020-06-07] MEDS: *HR* LORazepam 0.5 MG TABLET PO SCH (21:01)
[2020-06-07] MEDS: *HR* Heparin 5,000 UNIT/ML VIAL SQ SCH (21:02)
[2020-06-08] MEDS: *HR* Heparin 5,000 UNIT/ML VIAL SQ SCH ×2 (05:52→14:51)
[2020-06-08] MEDS ORDERED: Regadenoson 0.4 MG/5 ML SYRINGE IVP ONE (06:24)
[2020-06-08 07:32] LABS: Basophils % 0.7 %; Eosinophils # 0.2 K/mcL (0.0-0.6); Eosinophils % 3.6 %; Hematocrit 38.1 % (35.3-44.9); Hemoglobin 12.1 g/dL (11.5-15.4); Immature Granulocytes % 0.2 % (0-4); Lymphocytes # 1.8 K/mcL (0.6-4.6); Mean Corpuscular HGB Conc 31.8 g/dL (31.6-35.5); Mean Corpuscular Hemoglobin 28.7 pg (28.0-33.3); Mean Corpuscular Volume 90.5 fL (83.0-100.0); Mean Platelet Volume 9.4 fL (9.4-12.4); Monocytes # 0.5 K/mcL (0.0-1.3); Platelet Count 194 K/mcL (140-400); Red Blood Count 4.21 M/mcL (3.82-4.97); Segmented Neutrophils % 44.5 %; White Blood Count 4.5 K/mcL (4.3-11.1)
[2020-06-08 07:44] LABS: BUN/Creatinine Ratio 21 (6-26); Blood Urea Nitrogen 18 mg/dL (8-23); Carbon Dioxide 24 mEq/L (23-29); Chloride 107 mEq/L (98-107); Glucose 152 mg/dL (70-105); Osmolality,Calculated 293 (280-300); Potassium 3.8 mEq/L (3.5-5.1); Sodium 139 mEq/L (136-145); eGFR For African Americans > 60 (> 60); eGFR For Non-African Americans > 60 (> 60)
[2020-06-08] MEDS ORDERED: Aspirin Enteric Coated 325 MG Tablet PO SCH (09:00)
[2020-06-08] MEDS ORDERED: lisinopriL 10 MG TABLET PO SCH (09:00)
[2020-06-08] MEDS: Insulin LISPRO 300 UNITS/3 ML VIAL SQ SCH ×3 (09:09→17:02)
[2020-06-08] MEDS: Metoprolol XL (24 HR) Succ 50 MG TAB.ER.24H PO SCH (09:41)
[2020-06-08] MEDS: *HR* LORazepam 0.5 MG TABLET PO SCH (09:41)
[2020-06-08 15:03] VITALS: BP 120/70
== END 2020-06-08 17:52 | disposition home or self-care (01) ==
LOC: 3BNU 15:47 → EMEROOARM 15:47 → SUATTDRO 19:25 → 3BNU 19:48
PROVIDERS: ADMIT Internal Medicine; ATTEND Internal Medicine

== ENCOUNTER 2021-02-04 20:20 | Observation (INO) ==
[2021-02-04 21:07] LABS: Basophils % 0.4 %; Eosinophils # 0.1 K/mcL (0.0-0.6); Eosinophils % 2.6 %; Hematocrit 37.1 % (35.3-44.9); Hemoglobin 11.9 g/dL (11.5-15.4); Immature Granulocytes % 0.4 % (0-4); Lymphocytes % 36.4 %; Mean Corpuscular HGB Conc 32.1 g/dL (31.6-35.5); Mean Corpuscular Hemoglobin 28.4 pg (28.0-33.3); Mean Corpuscular Volume 88.5 fL (83.0-100.0); Mean Platelet Volume 9.2 fL (9.4-12.4); Monocytes # 0.5 K/mcL (0.0-1.3); Monocytes % 9.3 %; Neutrophils # 2.8 K/mcL (1.6-8.9); Platelet Count 182 K/mcL (140-400); Red Blood Count 4.19 M/mcL (3.82-4.97); Red Cell Distribution Width 13.4 % (11.5-14.5); Segmented Neutrophils % 50.9 %; White Blood Count 5.5 K/mcL (4.3-11.1)
[2021-02-04] MEDS ORDERED: Nitroglycerin 0.4 MG TAB.SUBL SL ONE (21:17)
[2021-02-04] MEDS ORDERED: Ondansetron 4 MG/2 ML VIAL IVP ONE (21:17)
[2021-02-04 21:24] LABS: BUN/Creatinine Ratio 17 (6-26); Blood Urea Nitrogen 15 mg/dL (8-23); Calcium 8.9 mg/dL (8.6-10.3); Carbon Dioxide 25 mEq/L (23-29); Chloride 103 mEq/L (98-107); Glucose 144 mg/dL (70-105); Osmolality,Calculated 287 (280-300); Sodium 137 mEq/L (136-145); eGFR For African Americans > 60 (> 60); eGFR For Non-African Americans > 60 (> 60)
[2021-02-04 21:25] LABS: Troponin I < 0.03 ng/mL (< 0.04)
[2021-02-05] MEDS ORDERED: Melatonin 3 MG TABLET PO PRN (01:12)
[2021-02-05] MEDS ORDERED: Ondansetron 4 MG/2 ML VIAL IVP PRN (01:12)
[2021-02-05] MEDS ORDERED: Acetaminophen 325 MG TABLET PO PRN (01:12)
[2021-02-05] MEDS ORDERED: Naloxone 0.4 MG/ML INJ IVP PRN (01:12)
[2021-02-05 03:02] LABS: Basophils % 0.3 %; Eosinophils # 0.2 K/mcL (0.0-0.6); Eosinophils % 2.6 %; Hematocrit 36.8 % (35.3-44.9); Hemoglobin 12.1 g/dL (11.5-15.4); Immature Granulocytes % 0.3 % (0-4); Lymphocytes # 2.1 K/mcL (0.6-4.6); Lymphocytes % 35.9 %; Mean Corpuscular HGB Conc 32.9 g/dL (31.6-35.5); Mean Corpuscular Volume 88.2 fL (83.0-100.0); Mean Platelet Volume 9.5 fL (9.4-12.4); Monocytes # 0.6 K/mcL (0.0-1.3); Monocytes % 9.7 %; Platelet Count 161 K/mcL (140-400); Red Blood Count 4.17 M/mcL (3.82-4.97); Red Cell Distribution Width 13.6 % (11.5-14.5); Segmented Neutrophils % 51.2 %; White Blood Count 5.9 K/mcL (4.3-11.1)
[2021-02-05 03:39] LABS: Alanine Aminotransferase 64 Units/L (7-52); Albumin 3.7 g/dL (3.5-5.7); Albumin/Globulin Ratio 1.2 (1.1-2.2); Alkaline Phosphatase 49 Units/L (34-104); Aspartate Amino Transferase 47 Units/L (13-39); BUN/Creatinine Ratio 17 (6-26); Bilirubin,Total 0.7 mg/dL (0.3-1.0); Blood Urea Nitrogen 14 mg/dL (8-23); Calcium 9.1 mg/dL (8.6-10.3); Carbon Dioxide 24 mEq/L (23-29); Chloride 105 mEq/L (98-107); Globulin 3.2 g/dL (2.4-3.5); Glucose 129 mg/dL (70-105); Magnesium 1.8 mg/dL (1.6-2.6); Osmolality,Calculated 290 (280-300); Phosphorous 4.4 mg/dL (2.7-4.5); Potassium 4.3 mEq/L (3.5-5.1); Sodium 139 mEq/L (136-145); Total Protein 6.9 g/dL (6.4-8.9); eGFR For African Americans > 60 (> 60); eGFR For Non-African Americans > 60 (> 60)
[2021-02-05 03:40] LABS: Troponin I 0.03 ng/mL (< 0.04)
[2021-02-05] MEDS ORDERED: Dextrose Gel 15 GM/37.5 ML TUBE PO PRN ×2 (05:15)
[2021-02-05] MEDS ORDERED: D5% in Water 1,000 ML IVC PRN (05:15)
[2021-02-05] MEDS ORDERED: *HR* Dextrose 50 % in Water (Vial) 50 ML VIAL IVP PRN (05:15)
[2021-02-05] MEDS ORDERED: Insulin LISPRO 300 UNITS/3 ML VIAL SUBQ SCH (06:00)
[2021-02-05] MEDS ORDERED: Perflutren Lipid Microsphere 1.3 ML in 0.9 % Sodium Chloride 8.7 ML IVP PRN (07:11)
[2021-02-05] MEDS ORDERED: *HR* LORazepam 0.5 MG TABLET PO PRN (08:27)
[2021-02-05] MEDS ORDERED: *HR* Metoprolol 5 MG/5 ML VIAL IVP PRN (08:28)
[2021-02-05] MEDS ORDERED: Isovue-370 500 ML BOTTLE IVP ONE (08:28)
[2021-02-05] MEDS ORDERED: Nitroglycerin 0.4 MG TAB.SUBL SL PRN (08:28)
[2021-02-05] MEDS ORDERED: 0.9 % Sodium Chloride 1,000 ML IVC SCH (08:30)
[2021-02-05] MEDS ORDERED: IVABRADINE HCL 7.5 MG TABLET PO STA (08:42)
[2021-02-05] MEDS ORDERED: Metoprolol XL (24 HR) Succ 50 MG TAB.ER.24H PO SCH (09:00)
[2021-02-05] MEDS ORDERED: lisinopriL 10 MG TABLET PO SCH (09:00)
[2021-02-05] MEDS ORDERED: Aspirin Enteric Coated 81 MG Tablet PO SCH (09:00)
[2021-02-05] MEDS: *HR* Metoprolol 5 MG/5 ML VIAL IVP PRN ×2 (09:41→10:16)
[2021-02-05] MEDS ORDERED: Nitroglycerin 0.4 MG TAB.SUBL SL ONE (10:18)
[2021-02-05 11:05] VITALS: BP 127/71
[2021-02-05] MEDS ORDERED: *HR* Heparin 5,000 UNIT/ML VIAL SQ SCH (18:00)
== END 2021-02-05 13:12 | disposition home or self-care (01) ==
LOC: 3BNU 20:20 → EMEROOARM 20:20 → SUATTDRO 22:51 → 3BNU 02-05 00:25
PROVIDERS: ADMIT Family Medicine; ATTEND Internal Medicine